=== PATIENT | female | born 1970 | race Caucasian/White ===

== ENCOUNTER → 2018-03-24 | Outpatient (CLI) | payer BC ==
--- NOTE | 2018-03-25 14:03 | MM ---
Reason for exam: screening (asymptomatic). Last mammogram was performed 1 year and 7 months ago. History: Family history of breast cancer in maternal grandmother at age 70. Physical Findings: A clinical breast exam by your physician is recommended on an annual basis and results should be correlated with mammographic findings. MG Screening Mammo w CAD Bilateral CC and MLO view(s) were taken. Prior study comparison: August 25, 2016, bilateral MG screening mammo w CAD. June 03, 2015, bilateral MG screening mammo w CAD. There are scattered fibroglandular densities. There is no discrete abnormality. No significant changes when compared with prior studies. ASSESSMENT: Negative, BI-RAD 1 RECOMMENDATION: Routine screening mammogram of both breasts in 1 year.
== END | disposition home or self-care (01) ==
LOC: RADMAMWWP 08:06
PROVIDERS: ATTEND Obstetrics & Gynecology
DX: Z12.31 Encounter for screening mammogram for malignant neoplasm of breast (principal)
CPT/HCPCS: 77067

== ENCOUNTER → 2019-02-13 | Outpatient (CLI) | payer BC ==
--- NOTE | 2019-02-13 08:15 | US ---
EXAMINATION TYPE: US kidneys/renal and bladder DATE OF EXAM: 02/13/2019 COMPARISON: None CLINICAL HISTORY: 48-year-old female N18.3 CKD Stage 3. TECHNIQUE: Multiple sonographic images of the kidneys and bladder are obtained. FINDINGS: EXAM MEASUREMENTS: Right Kidney: 9.7 x 5.2 x 4.4 cm Left Kidney: 12.6 x 4.6 x 4.3 cm Post Void Residual Volume: 2.7 mL Right Kidney: prominent Column of Talha noted from periphery to hilum Left Kidney: possible malrotation of lower pole; left kidney is partially obscured by overlying bowel gas No definite hydronephrosis on either side. Bilateral renal cortical thinning suggested. Bladder: Under distention limits evaluation Bilateral Jets seen: yes Normal Post Void Residual: yes IMPRESSION: 1. No evident hydronephrosis. Renal cortical thinning suggests underlying chronic medical renal disea se. 2. The lower portion of the left kidney is obscured and is not assessed adequately. 3. Underdistention of the bladder limits its evaluation.
== END ==
LOC: RADUSWWP 06:56
PROVIDERS: ATTEND Internal Medicine Nephrology
DX: N18.3 Chronic kidney disease, stage 3 (moderate) (principal)
CPT/HCPCS: 76770

== ENCOUNTER 2019-06-19 13:37 | Inpatient (IN) | payer BC ==
--- NOTE | 2019-06-19 13:10 | CT ---
EXAMINATION TYPE: CTA chest DATE OF EXAM: 06/19/2019 COMPARISON: None available at the time of this dictation HISTORY: 48-year-old female known right leg DVT, shortness of breath TECHNIQUE: Contiguous axial scanning of the chest after the administration of 76 mL of Isovue 370. C oronal/sagittal MIP reconstructions performed. CT DLP: 539.8mGycm. Automatic exposure control utilized for a dose reduction. FINDINGS: Heart upper limits of normal in size without pericardial effusion. Ectatic aortic root at 3.5 cm. Conventional arch vessel branching anatomy. Satisfactory opacification of the pulmonary arterial system but with mild respiratory motion artifact s is minimal linear internal filling defect at the branch point of the distal aspect of the right low er lobar pulmonary artery, reference axial image 69 and 70. No flattening of the interventricular sep rosamaria or reflux of contrast into the hepatic veins. There is scattered 5 mm and smaller nodularity particularly at the left base where some patchy ground glass is also present. Band of atelectasis at the left midlung. No pleural effusion. Tiny hiatal hernia. Spleen enlarged at 16.9 cm. Bones: Endplate spondylosis mid to lower thoracic spine. IMPRESSION: 1. Some respiratory motion artifacts. There is a solitary linear thromboembolus at the distal aspect of the right lower lobar pulmonary artery. Minimal overall burden without evidence for right heart st rain. 2. Patchy ground glass and nodularity at the left base. Correlate for infectious or aspiration pneumo nitis. Three-month follow-up CT chest recommended to ensure clearance. 3. Splenomegaly (16.[address]). Dr. Franklin's office will be notified of the critical results by phone immediately following the dict ation.
[2019-06-19] MEDS ORDERED: HEPARIN SODIUM,PORCINE 10,000 UNIT/ML 1 ML VIAL IV ONE (14:29)
[2019-06-19] MEDS ORDERED: HEPARIN SODIUM,PORCINE 5,000 UNIT/ML 1 ML VIAL IV PRN (14:29)
--- NOTE | 2019-06-19 14:38 | US ---
EXAMINATION TYPE: US venous doppler duplex LE RT DATE OF EXAM: 06/19/2019 10:22 AM COMPARISON: NONE CLINICAL HISTORY: 48-year-old female R22.41 Swelling of lower Rt leg. SIDE PERFORMED: Right TECHNIQUE: The lower extremity deep venous system is examined utilizing real time linear array sonog roderick with graded compression, doppler sonography and color-flow sonography. FINDINGS: VESSELS IMAGED: External Iliac Vein (EIV) Common Femoral Vein Deep Femoral Vein Greater Saphenous Vein * Femoral Vein Popliteal Vein Small Saphenous Vein * Proximal Calf Veins (* superficial vessels) Right Leg: Internal echoes with partial compression noticed from lower popiteal up through upper fem oral vein, including deep femoral vein, thready to no flow seen with indeterminate age of thrombus. V aricose vein at redness on calf also had no flow and was not compressible. *Impression given to Angelica HERNANDEZ at Rigoberto's office, patient being sent for CT. IMPRESSION: 1. Extensive, incompletely occlusive DVT extending from the upper femoral vein into the lower poplite al vein. Thrombus also involves the deep femoral vein. 2. Additional varicose vein thrombophlebitis at the site of patient's calf redness.
--- NOTE | 2019-06-19 14:40 | ED ---
General Adult HPI - General Chief complaint: Recheck/Abnormal Lab/Rx Stated complaint: Blood Clot in Lung Time Seen by Provider: 06/19/19 14:04 Source: patient, RN notes reviewed Mode of arrival: wheelchair Limitations: no limitations - History of Present Illness Initial comments: This a 48-year-old female presents emergency Department with chief complaint of abnormal ultrasound and CT. Patient states that she's been having right lower leg pain and swelling. Patient states she's noticed some redness was seen by PCP in which she had ultrasound was positive for DVT. Patient had a CAT scan of her chest which was positive for PE. Patient does admit that she had a prior DVT a few years ago and was initially on Xarelto though she had bleeding issues and was placed on Eliquis. Patient does not take any current blood thinners. Patient denies any current chest pain or shortness breath are the usual and states that she has underlying Asthma which usually causes her shortness breath. She reports no fevers or chills. Patient does complain right leg pain. Patient states she does not have any known clotting disorders denies any family history of clotting disorders - Related Data Home Medications Medication Instructions Recorded Confirmed Albuterol Sulfate [Ventolin HFA] 1 - 2 puff INHALATION RT-Q6H PRN 01/06/15 06/19/19 Mometasone/Formoterol [Dulera 200 2 puff INHALATION RT-DAILY 01/06/15 06/19/19 Mcg/5 Mcg Inhaler] Montelukast [Singulair] 10 mg PO HS 01/06/15 06/19/19 Calcium/Magnesium/Zinc 1 tab PO TID 06/19/19 06/19/19 [Tluerit-Wsjpkwovk-Kaey Tablet] Cholecalciferol [Vitamin D3 (25 5,000 unit PO DAILY 06/19/19 06/19/19 Mcg = 1000 Iu)] Hydrochlorothiazide [Hydrodiuril] 25 mg PO DAILY 06/19/19 06/19/19 Losartan Potassium [Cozaar] 12.5 mg PO DAILY 06/19/19 06/19/19 Pilocarpine [Salagen] 5 mg PO DAILY 06/19/19 06/19/19 Propranolol HCl [Propranolol HCl 60 mg PO DAILY 06/19/19 06/19/19 ER] Ursodiol 300 mg PO TID 06/19/19 06/19/19 amLODIPine [Norvasc] 5 mg PO DAILY 06/19/19 06/19/19 Allergies Allergy/AdvReac Type Severity Reaction Status Date / Time cephalexin monohydrate Allergy Rash/Hives Verified 06/19/19 14:40 [From Keflex] Penicillins Allergy Unknown Verified 06/19/19 14:40 Review of Systems ROS Statement: Those systems with pertinent positive or pertinent negative responses have been documented in the HPI. ROS Other: All systems not noted in ROS Statement are negative. Past Medical History Past Medical History: Deep Vein Thrombosis (DVT) Additional Past Medical History / Comment(s): diverticulitis. ELEVATED LFT'S. History of Any Multi-Drug Resistant Organisms: None Reported Past Surgical History: Cholecystectomy, Tonsillectomy Additional Past Surgical History / Comment(s): LIVER BIOPSY. Past Anesthesia/Blood Transfusion Reactions: No Reported Reaction Past Psychological History: No Psychological Hx Reported Smoking Status: Former smoker Past Alcohol Use History: None Reported Past Drug Use History: None Reported - Past Family History Mother Family Medical History: Diabetes Mellitus General Exam Limitations: no limitations General appearance: alert, in no apparent distress Head exam: Present: atraumatic, normocephalic, normal inspection Neck exam: Present: normal inspection, full ROM. Absent: tenderness, meningismus, lymphadenopathy Respiratory exam: Present: normal lung sounds bilaterally. Absent: respiratory distress, wheezes, rales, rhonchi, stridor Cardiovascular Exam: Present: regular rate, normal rhythm, normal heart sounds. Absent: systolic murmur, diastolic murmur, rubs, gallop, clicks Extremities exam: Present: other (Right calf there is mild erythema, swelling, tenderness with palpation, pedal pulses equal bilaterally) Back exam: Absent: CVA tenderness (R), CVA tenderness (L) Neurological exam: Present: alert, oriented X3, CN II-XII intact Skin exam: Present: warm, dry, intact, normal color. Absent: rash Course Vital Signs 06/19/19 13:57 Temperature 98.4 F Pulse Rate 78 Respiratory 20 Rate Blood Pressure 158/91 O2 Sat by Pulse 99 Oximetry EKG Findings - EKG Comments: EKG Findings:: EKG performed at 14:28 normal sinus rhythm prolonged QT rate of 76 RI interval 164 QRS 102 QT/QTC 4:30/483 Medical Decision Making - Lab Data Result diagrams: 06/19/19 14:44 06/19/19 14:44 Lab Results 06/19/19 06/19/19 06/19/19 Range/Units 14:44 14:44 14:44 WBC 6.8 (3.8-10.6) k/uL RBC 4.14 (3.80-5.40) m/uL Hgb 12.1 (11.4-16.0) gm/dL Hct 35.8 (34.0-46.0) % MCV 86.3 (80.0-100.0) fL MCH 29.1 (25.0-35.0) pg MCHC 33.7 (31.0-37.0) g/dL RDW 14.6 (11.5-15.5) % Plt Count 127 L (150-450) k/uL Neutrophils % 73 % Lymphocytes % 11 % Monocytes % 5 % Eosinophils % 8 % Basophils % 0 % Neutrophils # 4.9 (1.3-7.7) k/uL Lymphocytes # 0.8 L (1.0-4.8) k/uL Monocytes # 0.3 (0-1.0) k/uL Eosinophils # 0.6 (0-0.7) k/uL Basophils # 0.0 (0-0.2) k/uL PT 10.4 (9.0-12.0) sec INR 1.0 (<1.2) APTT 41.9 H (22.0-30.0) sec Sodium 141 (137-145) mmol/L Potassium 3.3 L (3.5-5.1) mmol/L Chloride 101 (98-107) mmol/L Carbon Dioxide 30 (22-30) mmol/L Anion Gap 10 mmol/L BUN 26 H (7-17) mg/dL Creatinine 1.38 H (0.52-1.04) mg/dL Est GFR (CKD-EPI)AfAm 53 (>60 ml/min/1.73 sqM) Est GFR (CKD-EPI)NonAf 46 (>60 ml/min/1.73 sqM) Glucose 108 H (74-99) mg/dL Calcium 9.6 (8.4-10.2) mg/dL Total Bilirubin 0.7 (0.2-1.3) mg/dL AST 44 H (14-36) U/L ALT 56 H (9-52) U/L Alkaline Phosphatase 143 H (38-126) U/L Troponin I (0.000-0.034) ng/mL NT-Pro-B Natriuret Pep pg/mL Total Protein 7.5 (6.3-8.2) g/dL Albumin 4.4 (3.5-5.0) g/dL 06/19/19 06/19/19 Range/Units 14:44 14:44 WBC (3.8-10.6) k/uL RBC (3.80-5.40) m/uL Hgb (11.4-16.0) gm/dL Hct (34.0-46.0) % MCV (80.0-100.0) fL MCH (25.0-35.0) pg MCHC (31.0-37.0) g/dL RDW (11.5-15.5) % Plt Count (150-450) k/uL Neutrophils % % Lymphocytes % % Monocytes % % Eosinophils % % Basophils % % Neutrophils # (1.3-7.7) k/uL Lymphocytes # (1.0-4.8) k/uL Monocytes # (0-1.0) k/uL Eosinophils # (0-0.7) k/uL Basophils # (0-0.2) k/uL PT (9.0-12.0) sec INR (<1.2) APTT (22.0-30.0) sec Sodium (137-145) mmol/L Potassium (3.5-5.1) mmol/L Chloride (98-107) mmol/L Carbon Dioxide (22-30) mmol/L Anion Gap mmol/L BUN (7-17) mg/dL Creatinine (0.52-1.04) mg/dL Est GFR (CKD-EPI)AfAm (>60 ml/min/1.73 sqM) Est GFR (CKD-EPI)NonAf (>60 ml/min/1.73 sqM) Glucose (74-99) mg/dL Calcium (8.4-10.2) mg/dL Total Bilirubin (0.2-1.3) mg/dL AST (14-36) U/L ALT (9-52) U/L Alkaline Phosphatase (38-126) U/L Troponin I <0.012 (0.000-0.034) ng/mL NT-Pro-B Natriuret Pep 56 pg/mL Total Protein (6.3-8.2) g/dL Albumin (3.5-5.0) g/dL - Radiology Data CT of chest and she'll there is a embolus at the distal aspect of the right lower pulmonary artery minimal overall burden without evidence of right heart strain. Ultrasound venous Doppler right lower extremity extensive incomplete occlusive DVT extending from upper a small vein into the lower popliteal vein Critical Care Time Critical Care Time: Yes Total Critical Care Time: 35 Critical Care Time: Total 35 minutes of critical care time were used to initially evaluated patient, reviewed past medical history, review vitals, reviewed outpatient studies. Labs including CBC, CMP, troponin, BnP were ordered EKG. Patient started on heparin high-dose on initial evaluation. Patient case discussed with admitting physician patient will be admitted for further evaluation secondary to second DVT along with PE Disposition Clinical Impression: Pulmonary embolism, Right leg DVT Disposition: ADMITTED IP TO THIS HOSP Condition: Fair Referrals: Rafiq Franklin MD [Primary Care Provider] - 1-2 days
[2019-06-19 14:59] LABS: Basophils % (A) 0 %; Eosinophils # (A) 0.6 k/uL (0-0.7); Eosinophils % (A) 8 %; HCT 35.8 % (34.0-46.0); HGB 12.1 gm/dL (11.4-16.0); Lymphocytes # (A) 0.8 k/uL (1.0-4.8); Lymphocytes % (A) 11 %; MCH 29.1 pg (25.0-35.0); MCHC 33.7 g/dL (31.0-37.0); MCV 86.3 fL (80.0-100.0); Mean Platelet Volume 9.4; Monocytes # (A) 0.3 k/uL (0-1.0); Monocytes % (A) 5 %; Neutrophils # (A) 4.9 k/uL (1.3-7.7); Neutrophils % (A) 73 %; Platelet Count 127 k/uL (150-450); RBC 4.14 m/uL (3.80-5.40); RDW 14.6 % (11.5-15.5); WBC 6.8 k/uL (3.8-10.6)
[2019-06-19 15:08] LABS: Albumin 4.4 g/dL (3.5-5.0); Calcium 9.6 mg/dL (8.4-10.2); Partial Thromboplastin Time 41.9 sec (22.0-30.0); Potassium 3.3 mmol/L (3.5-5.1); Prothrombin Time 10.4 sec (9.0-12.0); Total Bilirubin 0.7 mg/dL (0.2-1.3); Total Protein 7.5 g/dL (6.3-8.2)
[2019-06-19] MEDS: HEPARIN SOD,PORK IN 0.45% NACL 25,000 UNIT in 0.45% NACL 1 250ML.BAG IV SCH (15:55)
[2019-06-19] MEDS ORDERED: ACETAMINOPHEN TAB 325 MG TAB PO PRN (16:10)
[2019-06-19] MEDS ORDERED: HYDROcodone/APAP 5-325MG 1 EACH TAB PO PRN (16:10)
[2019-06-19] MEDS ORDERED: NALOXONE 0.4 MG/ML 1 ML VIAL IV PRN (16:10)
[2019-06-19] MEDS ORDERED: IPRATROPIUM-ALBUTEROL 3 ML NEB INHALATION PRN (19:48)
[2019-06-19 21:07] VITALS: BMI 43.2
[2019-06-19] MEDS: URSODIOL 300 MG CAP PO SCH (21:10)
[2019-06-19] MEDS: MONTELUKAST 10 MG TAB PO SCH (21:10)
--- NOTE | 2019-06-19 22:53 | P.HPIM ---
History of Present Illness H&P Date: 06/19/19 Chief Complaint: Acute venous thromboembolism 48-year-old female with history of primary biliary cirrhosis, asthma, history of venous thromboembolism. Patient comes in today with an outpatient diagnosis of acute DVT and PE. Patient has been complaining of some cramps and pain in her right leg for around a week now denies any trauma recent travel any recent hospitalization or surgery. Patient denies any active diagnoses of cancer. She was checked by her PCP who suspected a DVT performed and venous ultrasound of the lower extremity and found DVT. Was sent in here for further management CTA of the chest showed acute pulmonary embolism and groundglass appearance of the left lung base. She denies any coughing shortness of breath or chest pain denies any fevers or chills denies any nausea vomiting or abdominal pain she does report leg cramps and pain along with swelling and redness over her right leg. Patient does report that she had a provoked event of venous thromboembolic some back in 2014 where she was treated with Eliquis for 6 months In the ED she was also found to have low potassium otherwise her EKG showed prolonged QT interval but asymptomatic. CK D stage III at baseline. Review of Systems Pertinent positives as noted in HPI. All other systems were reviewed and are negative Past Medical History Past Medical History: Asthma, Deep Vein Thrombosis (DVT), Hypertension Additional Past Medical History / Comment(s): diverticulitis. ELEVATED LFT'S. p rimary biliary cirrhosis, Raynaud's History of Any Multi-Drug Resistant Organisms: None Reported Past Surgical History: Cholecystectomy, Tonsillectomy Additional Past Surgical History / Comment(s): LIVER BIOPSY. Past Anesthesia/Blood Transfusion Reactions: No Reported Reaction Past Psychological History: No Psychological Hx Reported Smoking Status: Former smoker Past Alcohol Use History: None Reported Past Drug Use History: None Reported - Past Family History Father History Unknown: Yes Mother Family Medical History: Diabetes Mellitus Medications and Allergies Home Medications Medication Instructions Recorded Confirmed Type Albuterol Sulfate [Ventolin HFA] 1 - 2 puff INHALATION RT-Q6H PRN 01/06/15 06/19/19 History Mometasone/Formoterol [Dulera 200 2 puff INHALATION RT-DAILY 01/06/15 06/19/19 History Mcg/5 Mcg Inhaler] Montelukast [Singulair] 10 mg PO HS 01/06/15 06/19/19 History Calcium/Magnesium/Zinc 1 tab PO TID 06/19/19 06/19/19 History [Rzaukan-Wcavqrmrn-Sqsv Tablet] Cholecalciferol [Vitamin D3 (25 5,000 unit PO DAILY 06/19/19 06/19/19 History Mcg = 1000 Iu)] Hydrochlorothiazide [Hydrodiuril] 25 mg PO DAILY 06/19/19 06/19/19 History Losartan Potassium [Cozaar] 12.5 mg PO DAILY 06/19/19 06/19/19 History Pilocarpine [Salagen] 5 mg PO DAILY 06/19/19 06/19/19 History Propranolol HCl [Propranolol HCl 60 mg PO DAILY 06/19/19 06/19/19 History ER] Ursodiol 300 mg PO TID 06/19/19 06/19/19 History amLODIPine [Norvasc] 5 mg PO DAILY 06/19/19 06/19/19 History Allergies Allergy/AdvReac Type Severity Reaction Status Date / Time cephalexin monohydrate Allergy Rash/Hives Verified 06/19/19 14:40 [From [employer]] Penicillins Allergy Unknown Verified 06/19/19 14:40 Physical Exam Vitals: Vital Signs Temp Pulse Pulse Resp BP BP Pulse Ox 06/19/19 20:00 98.4 F 85 16 134/82 95 06/19/19 18:30 77 130/94 98 06/19/19 18:00 150/87 98 06/19/19 17:30 75 18 155/90 97 06/19/19 16:30 71 17 131/86 99 06/19/19 16:00 68 32 H 138/92 100 06/19/19 13:57 98.4 F 78 20 158/91 99 Intake and Output 06/19/19 06/19/19 06/19/19 06:59 14:59 22:59 Other: Voiding Method Toilet Weight 107.229 kg Constitutional: No acute distress, conversant, pleasant, obese Eyes: Anicteric sclerae, moist conjunctiva, no lid-lag Pupils equal round reactive to light ENMT: NC/AT Oropharynx clear, no erythema, or exudates Neck: Supple, FROM, no masses, or JVD No carotid bruits No thyromegaly Lungs: Clear to auscultation Clear to percussion Normal respiratory effort, no accessory muscle use Cardiovascular: Heart regular in rate and rhythm, No murmurs, gallops, or rubs No peripheral edema Abdominal: Soft Nontender, no guarding, rebound or rigidity Abdomen moving with respiration Normoactive bowel sounds No hepatomegaly, No splenomegaly No palpable mass No abdominal wall hernia noted Skin: Area of redness and swelling over the medial aspect of the upper right leg tender to palpation warmth to the touch no drainage or open wounds Otherwise Normal temperature, tone, texture, turgor No induration No subcutaneous nodules No rash, lesions No ulcers Extremities: As mentioned above under skin exam there is area of Area of redness and swelling over the medial aspect of the upper right leg tender to palpation warmth to the touch no drainage or open wounds No digital cyanosis No clubbing Pedal pulses intact and symmetrical Radial pulses intact and symmetrical No calf tenderness Psychiatric: Alert and oriented to person, place and time Appropriate affect fair judgment Neuro Muscles Strength 5/5 in all 4 extremities Sensation to light touch grossly present throughout Cranial nerves II-XII grossly intact No focal sensory deficits Lymphatics: no palpable cervical or supraclavicular , or inguinal lymph nodes Results CBC & Chem 7: 06/19/19 14:44 06/19/19 14:44 Labs: Abnormal Lab Results - Last 24 Hours (Table) 06/19/19 06/19/19 06/19/19 Range/Units 14:44 14:44 14:44 Plt Count 127 L (150-450) k/uL Lymphocytes # 0.8 L (1.0-4.8) k/uL APTT 41.9 H (22.0-30.0) sec Potassium 3.3 L (3.5-5.1) mmol/L BUN 26 H (7-17) mg/dL Creatinine 1.38 H (0.52-1.04) mg/dL Glucose 108 H (74-99) mg/dL AST 44 H (14-36) U/L ALT 56 H (9-52) U/L Alkaline Phosphatase 143 H (38-126) U/L 06/19/19 Range/Units 21:03 Plt Count (150-450) k/uL Lymphocytes # (1.0-4.8) k/uL APTT >200.0 H* (22.0-30.0) sec Potassium (3.5-5.1) mmol/L BUN (7-17) mg/dL Creatinine (0.52-1.04) mg/dL Glucose (74-99) mg/dL AST (14-36) U/L ALT (9-52) U/L Alkaline Phosphatase (38-126) U/L Thrombosis Risk Factor Assmnt - Choose All That Apply Each Factor Represents 1 point: Age 41-60 years, Obesity (BMI >25) Thrombosis Risk Factor Assessment Total Risk Factor Score: 2 Thrombosis Risk Factor Assessment Level: Low Risk Assessment and Plan Assessment: 48-year-old female with history of primary biliary cirrhosis,provoked DVT 2014. 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 and pulmonary embolism History of provoked venous thromboembolic some back in 2014 Patient started on heparin drip We'll obtain authorization the morning for Eliquis Check ambulatory oxygen saturation in the morning Outpatient follow-up with hematology for further workup Hypokalemia Replace by mouth Follow-up levels Prolonged QT interval on EKG asymptomatic Replace electrolytes bread distributor Chronic conditions History of primary biliary cirrhosis Asthma Hypertension Continue home medications CK D stage III currently stable DVT prophylaxis currently on heparin drip for recurrent venous thromboembolic some Preformed a thorough record review from recent hospitalization, hospitalized back in 2014 for cardiac workup after which she claims to remain active for large chunks of time of the day and up with having what is thought to be provoked venous thromboembolism at that time was treated with Eliquis for 6 months and then stopped it on September 2015 Surrogate decision-maker: CODE STATUS: Full code Discussed with: Patient, ER, RN Anticipated discharge: 48-[address]: Home A total of 60 minutes was spent on the care of this complex patient more than 50% of the time was spent in counseling and care coordination.
[2019-06-19] MEDS ORDERED: POTASSIUM CHLORIDE ER 20 MEQ TAB.ER PO STA (22:55)
[2019-06-20 03:42] LABS: Basophils % (A) 1 %; Eosinophils # (A) 0.5 k/uL (0-0.7); Eosinophils % (A) 7 %; HCT 34.1 % (34.0-46.0); HGB 10.9 gm/dL (11.4-16.0); Lymphocytes # (A) 0.9 k/uL (1.0-4.8); Lymphocytes % (A) 13 %; MCHC 31.9 g/dL (31.0-37.0); MCV 87.8 fL (80.0-100.0); Mean Platelet Volume 7.6; Monocytes # (A) 0.3 k/uL (0-1.0); Monocytes % (A) 5 %; Neutrophils % (A) 71 %; Platelet Count 148 k/uL (150-450); RBC 3.88 m/uL (3.80-5.40); RDW 14.8 % (11.5-15.5)
[2019-06-20 04:06] LABS: Albumin 3.8 g/dL (3.5-5.0); Potassium 3.2 mmol/L (3.5-5.1); Total Bilirubin 0.7 mg/dL (0.2-1.3); Total Protein 6.6 g/dL (6.3-8.2)
[2019-06-20 04:07] LABS: Magnesium 1.9 mg/dL (1.6-2.3)
[2019-06-20] MEDS: HEPARIN SOD,PORK IN 0.45% NACL 25,000 UNIT in 0.45% NACL 1 250ML.BAG IV SCH ×2 (04:19→17:22)
[2019-06-20] MEDS ORDERED: POTASSIUM CHLORIDE ER 20 MEQ TAB.ER PO STA (06:56)
[2019-06-20] MEDS: PILOCARPINE 5 MG TAB PO SCH (08:11)
[2019-06-20] MEDS: LOSARTAN 25 MG TAB PO SCH (08:13)
[2019-06-20] MEDS: amLODIPine 5 MG TAB PO SCH (08:13)
[2019-06-20] MEDS: HYDROCHLOROTHIAZIDE 25 MG TAB PO SCH (08:13)
[2019-06-20] MEDS: URSODIOL 300 MG CAP PO SCH ×3 (08:14→22:06)
[2019-06-20] MEDS: PROPRANOLOL LA 60 MG CAP.SA.24H PO SCH (08:15)
[2019-06-20] MEDS: SYMBICORT 160-4.5 MCG INHALER INHALATION SCH (08:44)
--- NOTE | 2019-06-20 09:57 | P.PN ---
Subjective Progress Note Date: 06/20/19 Principal diagnosis: Patient feels okay today no chest pain no shortness of breath Constitutional: No acute distress, Eyes: Anicteric sclerae, moist conjunctiva, no lid-lag PERRLA ENMT: NC/AT Oropharynx clear, no erythema, exudates Neck: Supple, FROM, no masses, or JVD No carotid bruits No thyromegaly Lungs: Clear to auscultation Clear to percussion Normal respiratory effort, no accessory muscle use Cardiovascular: Heart regular in rate and rhythm, No murmurs, gallops, or rubs No peripheral edema Abdominal: Soft Nontender, no guarding, rebound or rigidity Abdomen moving with respiration Normoactive bowel sounds No hepatomegaly, No splenomegaly No palpable mass No abdominal wall hernia noted Skin: Normal temperature, tone, texture, turgor No induration No subcutaneous nodules No rash, lesions No ulcers Extremities: No digital cyanosis No clubbing Pedal pulses intact and symmetrical Radial pulses intact and symmetrical Normal gait and station No calf tenderness Psychiatric:Alert and oriented to person, place and time Appropriate affect Intact judgement Neuro: No focal weakness 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 and pulmonary embolism History of provoked venous thromboembolic some back in 2014 Patient started on heparin drip We'll obtain authorization the morning for Eliquis Mild thrombocytopenia no evidence of bleeding we will consult hematology Hypokalemia Replace by mouth Follow-up levels Prolonged QT interval on EKG asymptomatic 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 conditions History of primary biliary cirrhosis Asthma Hypertension Continue home medications CK D stage III currently stable Objective - Vital Signs Vital signs: Vital Signs Temp 98 F 06/20/19 08:00 Pulse 100 06/20/19 08:00 Resp 18 06/20/19 08:00 BP 149/74 06/20/19 08:00 Pulse Ox 96 06/20/19 08:00 Intake & Output 06/19/19 06/20/19 06/20/19 18:59 06:59 18:59 Intake Total 223.355 120 Balance 223.355 120 Weight 107.229 kg 118.1 kg Intake: Intake, IV Titration 223.355 Amount Heparin Sod,Pork in 0.45% 223.355 NaCl 25,000 unit In 0.45 % NaCl 1 250ml.bag @ 18 UNITS/KG/HR 19.301 mls/hr IV .[id number] [facility] Rx#: [id number] Oral 120 Other: Voiding Method Toilet # Voids 1 1 - Labs CBC & Chem 7: 06/20/19 03:20 06/20/19 03:20 Labs: Abnormal Lab Results - Last 24 Hours (Table) 06/19/19 06/19/19 06/19/19 Range/Units 14:44 14:44 14:44 Hgb (11.4-16.0) gm/dL Plt Count 127 L (150-450) k/uL Lymphocytes # 0.8 L (1.0-4.8) k/uL APTT 41.9 H (22.0-30.0) sec Potassium 3.3 L (3.5-5.1) mmol/L BUN 26 H (7-17) mg/dL Creatinine 1.38 H (0.52-1.04) mg/dL Glucose 108 H (74-99) mg/dL AST 44 H (14-36) U/L ALT 56 H (9-52) U/L Alkaline Phosphatase 143 H (38-126) U/L 06/19/19 06/20/19 06/20/19 Range/Units 21:03 03:20 03:20 Hgb 10.9 L (11.4-16.0) gm/dL Plt Count 148 L (150-450) k/uL Lymphocytes # 0.9 L (1.0-4.8) k/uL APTT >200.0 H* 81.2 H (22.0-30.0) sec Potassium (3.5-5.1) mmol/L BUN (7-17) mg/dL Creatinine (0.52-1.04) mg/dL Glucose (74-99) mg/dL AST (14-36) U/L ALT (9-52) U/L Alkaline Phosphatase (38-126) U/L 06/20/19 Range/Units 03:20 Hgb (11.4-16.0) gm/dL Plt Count (150-450) k/uL Lymphocytes # (1.0-4.8) k/uL APTT (22.0-30.0) sec Potassium 3.2 L (3.5-5.1) mmol/L BUN 25 H (7-17) mg/dL Creatinine 1.26 H (0.52-1.04) mg/dL Glucose 108 H (74-99) mg/dL AST 38 H (14-36) U/L ALT 54 H (9-52) U/L Alkaline Phosphatase (38-126) U/L
--- NOTE | 2019-06-20 16:15 | P.CONS ---
History of Present Illness - Reason for Consult Consult date: 06/20/19 RLE DVT/RLL PE, Hx of blood clots Requesting physician: Alyssa Cannon Bleibel - Chief Complaint chest discomfort - History of Present Illness Mrs. Lambert is a very pleasant 48-year-old female with a history of varicose veins, she was also seen by Dr. Castellanos several years ago for varicose veins and peripheral vascular disease. Back in December 2014 patient was a dmitted for severe hypertensive urgency/crisis. She was hospitalized for several days. In January 2015 she was diagnosed right lower extremity DVT, VQ at that time was "suspicious for right lower lobe pulmonary embolism". Patient was placed on Xarelto, unfortunately she had HOGSHEAD DUMPER hemorrhage, this was managed and she was placed on eliquis for 6 months of therapy without further complications. Patient presented to the hospital with complaints of persistent, progressive right lower extremity swelling and discomfort, she also had some complaints of chest discomfort, CT of the chest revealing a right lower lobe pulmonary embolism, Doppler of the right lower extremity revealed a popliteal to femoral clot. She is currently on heparin, her leg continues to be tender, swelling little less intense, she denies any bleeding, patient states she is due for mammogram, denies a personal history of malignancy, denies hematological disorders in her family. She has a history of uterine fibroids with large ovarian cyst on the left for which she has had surgery. Denies any recent trips, hospitalizations, surgeries, she is not on any hormones, no injuries, she has been working and her activity levels have been good, she does have asthma with steroid inhalers, denies oral steroid use chronically, she does have stage III chronic kidney disease as well as hypertension. Review of Systems 14 point review of systems is negative except as stated in HPI Past Medical History Past Medical History: Asthma, Deep Vein Thrombosis (DVT), Hypertension, Pulmonary Embolus (PE) Additional Past Medical History / Comment(s): diverticulitis. ELEVATED LFT'S. primary biliary cirrhosis, Raynaud's History of Any Multi-Drug Resistant Organisms: None Reported Past Surgical History: Cholecystectomy, Tonsillectomy Additional Past Surgical History / Comment(s): LIVER BIOPSY. Past Anesthesia/Blood Transfusion Reactions: No Reported Reaction Past Psychological History: No Psychological Hx Reported Smoking Status: Former smoker Past Alcohol Use History: None Reported Past Drug Use History: None Reported - Past Family History Father History Unknown: Yes Mother Family Medical History: Diabetes Mellitus Additional Family Medical History / Comment(s): Grandmother with breast cancer in her 80s, no hematological disorders Medications and Allergies Home Medications Medication Instructions Recorded Confirmed Type Albuterol Sulfate [Ventolin HFA] 1 - 2 puff INHALATION RT-Q6H PRN 01/06/15 06/19/19 History Mometasone/Formoterol [Dulera 200 2 puff INHALATION RT-DAILY 01/06/15 06/19/19 History Mcg/5 Mcg Inhaler] Montelukast [Singulair] 10 mg PO HS 01/06/15 06/19/19 History Calcium/Magnesium/Zinc 1 tab PO TID 06/19/19 06/19/19 History [Rnkuuib-Puunjrujp-Kiju Tablet] Cholecalciferol [Vitamin D3 (25 5,000 unit PO DAILY 06/19/19 06/19/19 History Mcg = 1000 Iu)] Hydrochlorothiazide [Hydrodiuril] 25 mg PO DAILY 06/19/19 06/19/19 History Losartan Potassium [Cozaar] 12.5 mg PO DAILY 06/19/19 06/19/19 History Pilocarpine [Salagen] 5 mg PO DAILY 06/19/19 06/19/19 History Propranolol HCl [Propranolol HCl 60 mg PO DAILY 06/19/19 06/19/19 History ER] Ursodiol 300 mg PO TID 06/19/19 06/19/19 History amLODIPine [Norvasc] 5 mg PO DAILY 06/19/19 06/19/19 History Allergies Allergy/AdvReac Type Severity Reaction Status Date / Time cephalexin monohydrate Allergy Rash/Hives Verified 06/19/19 14:40 [From Keflex] Penicillins Allergy Unknown Verified 06/19/19 14:40 Physical Exam Vitals: Vital Signs Temp Pulse Pulse Pulse Resp BP BP 06/20/19 11:23 98 F 81 18 122/83 06/20/19 08:00 98 F 100 18 149/74 06/20/19 03:50 98.2 F 82 15 136/82 06/20/19 00:18 98.3 F 77 16 118/80 06/19/19 22:54 90 06/19/19 20:00 98.4 F 85 16 134/82 06/19/19 18:30 77 130/94 06/19/19 18:00 150/87 06/19/19 17:30 75 18 155/90 06/19/19 16:30 71 17 131/86 06/19/19 16:00 68 32 H 138/92 Pulse Ox Pulse Ox 06/20/19 11:23 96 06/20/19 08:00 96 06/20/19 03:50 98 06/20/19 00:18 96 06/19/19 22:54 96 06/19/19 20:00 95 06/19/19 18:30 98 06/19/19 18:00 98 06/19/19 17:30 97 06/19/19 16:30 99 06/19/19 16:00 100 Intake and Output 06/20/19 06/20/19 06/20/19 06:59 14:59 22:59 Intake Total 223.355 600 Balance 223.355 600 Intake: Intake, IV Titration 223.355 Amount Heparin Sod,Pork in 0.45% 223.355 NaCl 25,000 unit In 0.45 % NaCl 1 250ml.bag @ 18 UNITS/KG/HR 19.301 mls/hr IV .[id number] Rx#: [id number] Oral 600 Other: Voiding Method Toilet # Voids 1 1 Weight 118.1 kg - Constitutional General appearance: cooperative, no acute distress, obese - EENT Eyes: anicteric sclerae, EOMI ENT: hearing grossly normal, normal oropharynx - Neck Neck: no lymphadenopathy - Respiratory Respiratory: right: dullness (Lower lobe), left: CTA - Cardiovascular Right lower extremity medial calf has some moderate redness, warmth, firm to the touch pedal pulses palpable +2 Rhythm: regular Heart sounds: normal: S1, S2 Abnormal Heart Sounds: no systolic murmur, no diastolic murmur, no rub, no S3 Gallop, no S4 Gallop, no click, no other - Gastrointestinal General gastrointestinal: no absent bowel sounds, no decreased bowel sounds, no distended, no hepatomegaly, no hyperactive bowel sounds, normal bowel sounds, no organomegaly, no rigid, no scaphoid, soft, no splenomegaly, no tenderness, no umbilical hernia, no ventral hernia - Integumentary Integumentary: normal - Neurologic Neurologic: CNII-XII intact - Musculoskeletal Musculoskeletal: strength equal bilaterally - Psychiatric Psychiatric: A&O x's 3, appropriate affect, intact judgment & insight Results CBC & Chem 7: 06/20/19 03:20 06/20/19 11:48 Labs: Abnormal Lab Results - Last 24 Hours (Table) 06/19/19 06/20/19 06/20/19 Range/Units 21:03 03:20 03:20 Hgb 10.9 L (11.4-16.0) gm/dL Plt Count 148 L (150-450) k/uL Lymphocytes # 0.9 L (1.0-4.8) k/uL APTT >200.0 H* 81.2 H (22.0-30.0) sec Potassium (3.5-5.1) mmol/L BUN (7-17) mg/dL Creatinine (0.52-1.04) mg/dL Glucose (74-99) mg/dL AST (14-36) U/L ALT (9-52) U/L 06/20/19 06/20/19 Range/Units 03:20 10:23 Hgb (11.4-16.0) gm/dL Plt Count (150-450) k/uL Lymphocytes # (1.0-4.8) k/uL APTT 60.3 H (22.0-30.0) sec Potassium 3.2 L (3.5-5.1) mmol/L BUN 25 H (7-17) mg/dL Creatinine 1.26 H (0.52-1.04) mg/dL Glucose 108 H (74-99) mg/dL AST 38 H (14-36) U/L ALT 54 H (9-52) U/L CT scan - chest: report reviewed Venous US: report reviewed Assessment and Plan (1) Pulmonary embolism Current Visit: Yes Status: Acute Priority: High Code(s): I26.99 - OTHER PULMONARY EMBOLISM WITHOUT ACUTE COR PULMONALE SNOMED Code(s): 82404906 (2) Right leg DVT Current Visit: Yes Status: Acute Priority: High Code(s): I82.401 - ACUTE EMBOLISM AND THOMBOS UNSP DEEP VEINS OF R LOW EXTREM SNOMED Code(s): 805271328 Plan: Case was reviewed with Dr. Melo. From review of the patient's chart, history and physical exam this does appear to be an unprovoked DVT and PE. It is not absolutely certain if this is possibly chronic. Patient does have a history of a right lower extremity DVT in 2015, posthospitalization, VQ scan impression was suspicion for a right lower lobe PE. Patient states she was anticoagulated with Xarelto initially, she had gynecological hemorrhaging, was placed on all across and tolerated this well. Recommendation is loading dose eliquis, continue anticoagulation for at least one year, follow up doppler and CTA before considering discontinuation of therapy. There is also the high probability that pt may have to be on lifelong anticoagulation. She verbalized understanding. Re viewed hypercoaguable work up, prescription has been placed in the chart. Follow-up with Dr. Melo in 4-5 weeks after discharge. Reviewed bleeding precautions
[2019-06-20] MEDS: MONTELUKAST 10 MG TAB PO SCH (22:05)
[2019-06-21 07:43] LABS: HCT 31.8 % (34.0-46.0); HGB 10.4 gm/dL (11.4-16.0); MCHC 32.8 g/dL (31.0-37.0); MCV 88.6 fL (80.0-100.0); Mean Platelet Volume 8.2; Platelet Count 136 k/uL (150-450); RBC 3.59 m/uL (3.80-5.40); RDW 14.8 % (11.5-15.5); WBC 5.9 k/uL (3.8-10.6)
[2019-06-21] MEDS: SYMBICORT 160-4.5 MCG INHALER INHALATION SCH (07:45)
[2019-06-21 08:01] LABS: Albumin 3.6 g/dL (3.5-5.0); Calcium 8.8 mg/dL (8.4-10.2); Potassium 3.6 mmol/L (3.5-5.1); Total Bilirubin 0.6 mg/dL (0.2-1.3); Total Protein 6.3 g/dL (6.3-8.2)
[2019-06-21] MEDS: URSODIOL 300 MG CAP PO SCH ×3 (08:23→20:58)
[2019-06-21] MEDS: HYDROCHLOROTHIAZIDE 25 MG TAB PO SCH (08:23)
[2019-06-21] MEDS: LOSARTAN 25 MG TAB PO SCH ×2 (08:23→09:07)
[2019-06-21] MEDS: PROPRANOLOL LA 60 MG CAP.SA.24H PO SCH ×2 (08:23→09:07)
[2019-06-21] MEDS: PILOCARPINE 5 MG TAB PO SCH ×2 (08:23→08:34)
[2019-06-21] MEDS: amLODIPine 5 MG TAB PO SCH ×2 (08:23→09:07)
[2019-06-21] MEDS: HEPARIN SOD,PORK IN 0.45% NACL 25,000 UNIT in 0.45% NACL 1 250ML.BAG IV SCH ×2 (08:30→20:59)
--- NOTE | 2019-06-21 09:44 | P.PN ---
Progress Note - Text Progress Note Date: 06/21/19 Patient complained of shortness of breath this morning does not appear to be in distress not hypoxic and hemodynamically stable no chest pain no vomiting Constitutional: No acute distress, conversant, pleasant Eyes: Neck: Supple, Lungs: Clear to auscultation Clear to percussion Normal respiratory effort, no accessory muscle use Cardiovascular: Heart regular in rate and rhythm, No murmurs, gallops, or rubs No peripheral edema Abdominal: Soft Nontender, no guarding, rebound or rigidity Skin: Normal temperature, tone, texture, turgor No induration No subcutaneous nodules No rash, lesions No ulcers Extremities: No digital cyanosis No clubbing Pedal pulses intact and symmetrical Radial pulses intact and symmetrical Normal gait and station No calf tenderness Psychiatric:Alert and oriented to person, place and time Appropriate affect Intact judgement Neuro: No obvious weakness 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
--- NOTE | 2019-06-21 15:57 | P.CNPUL ---
History of Present Illness Consult date: 06/21/19 Reason for consult: pulmonary embolism, DVT History of present illness: This is a very pleasant 48-year-old female patient is coming in for pain and cramps in the right lower extremity of one week duration. chest discomfort. The patient has previous history of a right lower extremity DVT back in 2014. At that time the patient was treated with anticoagulation with Xarelto for a total of 6 months. Subsequently the treatment was discontinued as the patient developed vaginal bleeding related to fibroid tumors. Anti-coagulation was stopped and subsequently the patient underwent a hysterectomy. Or this past 3 years the patient was doing well. She came in and further workup during this current hospitalization showed a right lower extremities DVT involving the popliteal and the femoral veins. The patient was started on IV heparin. CT angiogram was also done and it showed a small subsegmental pulmonary embolism in the right lower lobe. The patient is currently on IV heparin to be transitioned to Eliquis. She is doing well per sputum production for which he is followed up in our office for bronchial asthma. She has no hemoptysis. No pleurisy. No chest pain. She suffers from biliary cirrhosis which is a primary. Cirrhosis pH is suffers also from hypertension and chronic stage III kidney disease. No new complaints otherwise for now. Note that the patient did not have any travel history. No recent hospitalization. No recent surgeries. No recent trauma. Review of Systems Constitutional: Denies chills, Denies fever Eyes: denies as per HPI, denies blurred vision, denies bulging eye, denies decreased vision, denies diplopia, denies discharge, denies dry eye, denies irritation, denies itching, denies pain, denies photophobia, denies loss of peripheral vision, denies loss of vision, denies tunnel vision/blind spots Ears: deny: decreased hearing, ear discharge, earache, tinnitus Ears, nose, mouth and throat: Denies headache, Denies sore throat Breasts: absent: as per HPI, change in shape, gynecomastia, masses, nipple discharge, pain, skin changes, swelling Cardiovascular: Reports chest pain, Reports dyspnea on exertion Respiratory: Reports as per HPI Gastrointestinal: Reports as per HPI Genitourinary: Reports as per HPI Musculoskeletal: Reports as per HPI (Pain in the right lower extremity) Musculoskeletal: right: ankle swelling, absent: ankle pain, ankle stiffness Integumentary: Reports as per HPI Neurological: Reports as per HPI Psychiatric: Reports as per HPI Endocrine: Reports as per HPI Hematologic/Lymphatic: Reports as per HPI Allergic/Immunologic: Reports as per HPI Past Medical History Past Medical History: Asthma, Deep Vein Thrombosis (DVT), Hypertension, Pulmonary Embolus (PE) Additional Past Medical History / Comment(s): History of a right lower extremity DVT, history of pulmonary embolism, history of diverticulosis, probably cirrhosis, hypertension, chronic stage III kidney disease, Raynaud's disease, diverticulosis History of Any Multi-Drug Resistant Organisms: None Reported Past Surgical History: Cholecystectomy, Tonsillectomy Additional Past Surgical History / Comment(s): LIVER BIOPSY. Past Anesthesia/Blood Transfusion Reactions: No Reported Reaction Past Psychological History: No Psychological Hx Reported Smoking Status: Former smoker Past Alcohol Use History: None Reported Past Drug Use History: None Reported - Past Family History Father History Unknown: Yes Additional Family Medical History / Comment(s): No family history of thromboembolic disease Mother Family Medical History: Diabetes Mellitus Additional Family Medical History / Comment(s): Grandmother with breast cancer in her 80s, no hematological disorders Medications and Allergies Home Medications Medication Instructions Recorded Confirmed Type Albuterol Sulfate [Ventolin HFA] 1 - 2 puff INHALATION RT-Q6H PRN 01/06/15 06/19/19 History Mometasone/Formoterol [Dulera 200 2 puff INHALATION RT-DAILY 01/06/15 06/19/19 History Mcg/5 Mcg Inhaler] Montelukast [Singulair] 10 mg PO HS 01/06/15 06/19/19 History Calcium/Magnesium/Zinc 1 tab PO TID 06/19/19 06/19/19 History [Ugqwdgx-Cwqyimrlw-Dxyd Tablet] Cholecalciferol [Vitamin D3 (25 5,000 unit PO DAILY 06/19/19 06/19/19 History Mcg = 1000 Iu)] Hydrochlorothiazide [Hydrodiuril] 25 mg PO DAILY 06/19/19 06/19/19 History Losartan Potassium [Cozaar] 12.5 mg PO DAILY 06/19/19 06/19/19 History Pilocarpine [Salagen] 5 mg PO DAILY 06/19/19 06/19/19 History Propranolol HCl [Propranolol HCl 60 mg PO DAILY 06/19/19 06/19/19 History ER] Ursodiol 300 mg PO TID 06/19/19 06/19/19 History amLODIPine [Norvasc] 5 mg PO DAILY 06/19/19 06/19/19 History Allergies Allergy/AdvReac Type Severity Reaction Status Date / Time cephalexin monohydrate Allergy Rash/Hives Verified 06/19/19 14:40 [From Keflex] Penicillins Allergy Unknown Verified 06/19/19 14:40 Physical Exam Vitals: Vital Signs Temp Pulse Resp BP Pulse Ox 06/21/19 15:25 98.0 F 84 18 122/80 96 06/21/19 11:25 97.9 F 72 18 109/80 99 06/21/19 08:00 75 18 125/74 99 06/21/19 04:00 98.6 F 69 16 104/64 99 06/21/19 00:32 98.3 F 73 15 107/73 98 06/20/19 22:00 98.0 F 76 16 122/78 98 06/20/19 16:00 98.7 F 80 16 117/75 96 Intake and Output 06/21/19 06/21/19 06/21/19 06:59 14:59 22:59 Intake Total 810.959 Balance 810.959 Intake: Intake, IV Titration 210.959 Amount Heparin Sod,Pork in 0.45% 210.959 NaCl 25,000 unit In 0.45 % NaCl 1 250ml.bag @ 18 UNITS/KG/HR 19.301 mls/hr IV .[id number] [facility] Rx#: [id number] Oral 600 Other: Voiding Method Toilet Toilet # Voids 1 1 Weight 118.9 kg Constitutional: No acute distress, conversant, pleasant, obese Eyes: Anicteric sclerae, moist conjunctiva, no lid-lag Pupils equal round reactive to light ENMT: NC/AT Oropharynx clear, no erythema, or exudates Neck: Supple, FROM, no masses, or JVD No carotid bruits No thyromegaly Lungs: Clear to auscultation Clear to percussion Normal respiratory effort, no accessory muscle use Cardiovascular: Heart regular in rate and rhythm, No murmurs, gallops, or rubs No peripheral edema Abdominal: Soft Nontender, no guarding, rebound or rigidity Abdomen moving with respiration Normoactive bowel sounds No hepatomegaly, No splenomegaly No palpable mass No abdominal wall hernia noted Skin: Area of redness and swelling over the medial aspect of the upper r ight leg tender to palpation warmth to the touch no drainage or open wounds Otherwise Normal temperature, tone, texture, turgor No induration No subcutaneous nodules No rash, lesions No ulcers Extremities: As mentioned above under skin exam there is area of Area of redness and swelling over the medial aspect of the upper right leg tender to palpation warmth to the touch no drainage or open wounds No digital cyanosis No clubbing Pedal pulses intact and symmetrical Radial pulses intact and symmetrical No calf tenderness Psychiatric: Alert and oriented to person, place and time Appropriate affect fair judgment Neuro Muscles Strength 5/5 in all 4 extremities Sensation to light touch grossly present throughout Cranial nerves II-XII grossly intact No focal sensory deficits Lymphatics: no palpable cervical or supraclavicular , or inguinal lymph nodes Results - Laboratory Findings CBC and BMP: 06/21/19 05:57 06/21/19 05:57 PT/INR, D-dimer PT 10.4 sec (9.0-12.0) 06/19/19 14:44 INR 1.0 (<1.2) 06/19/19 14:44 Abnormal lab findings: Abnormal Labs 06/19/19 06/19/19 06/19/19 14:44 14:44 14:44 RBC Hgb Hct Plt Count 127 L Lymphocytes # 0.8 L APTT 41.9 H Potassium 3.3 L BUN 26 H Creatinine 1.38 H Glucose 108 H AST 44 H ALT 56 H Alkaline Phosphatase 143 H 06/19/19 06/20/19 06/20/19 21:03 03:20 03:20 RBC Hgb 10.9 L Hct Plt Count 148 L Lymphocytes # 0.9 L APTT >200.0 H* 81.2 H Potassium BUN Creatinine Glucose AST ALT Alkaline Phosphatase 06/20/19 06/20/19 06/21/19 03:20 10:23 05:57 RBC 3.59 L Hgb 10.4 L Hct 31.8 L Plt Count 136 L Lymphocytes # APTT 60.3 H Potassium 3.2 L BUN 25 H Creatinine 1.26 H Glucose 108 H AST 38 H ALT 54 H Alkaline Phosphatase 06/21/19 06/21/19 05:57 05:57 RBC Hgb Hct Plt Count Lymphocytes # APTT 50.1 H Potassium BUN 22 H Creatinine 1.27 H Glucose AST 37 H ALT Alkaline Phosphatase - Diagnostic Findings CT scan - chest: image reviewed Assessment and Plan Plan: 1 acute right lower extremity DVT with secondary pulmonary embolism. This is a recurrent event. The patient initially event in 2014 and she is presenting with another episode of DVT and pulmonary but wasn't. The patient is currently on IV heparin. 2 shortness of breath/chest pain secondary to above 3 previous history of a provoked DVT and pulmonary embolism in 2014 4 bronchial asthma 5 hypertension 6 primary biliary cirrhosis 7 chronic stage III kidney disease 8 obesity Plan Continued IV heparin. The patient will be switched to Eliquis per protocol regarding DVT and pulmonary embolism. This will likely be a long-term anticoagulation I give the patient is a recurrent history of DVTs and pulmonary embolism. The patient meanwhile we'll need an echocardiogram. It'll be useful to assess the patient's pulmonary pressures especially with her history of primary biliary cirrhosis and history of pulmonary embolism. We'll establish a baseline LV function and PA pressure. Findings were discussed with the patient at length. At evaluation will discuss. Possible discharge within the next 24 hours after this patient is been transitioned to oral anticoagulants.
[2019-06-21] MEDS: MONTELUKAST 10 MG TAB PO SCH (20:56)
[2019-06-21] MEDS: APIXABAN 5 MG TAB PO SCH (20:56)
[2019-06-21] MEDS ORDERED: PROPRANOLOL LA 60 MG CAP.SA.24H PO SCH (21:00)
[2019-06-21] MEDS ORDERED: amLODIPine 5 MG TAB PO SCH (21:00)
[2019-06-21] MEDS ORDERED: LOSARTAN 25 MG TAB PO SCH (21:00)
[2019-06-22 06:11] LABS: Basophils % (A) 1 %; Eosinophils # (A) 0.5 k/uL (0-0.7); Eosinophils % (A) 9 %; HCT 33.8 % (34.0-46.0); HGB 11.1 gm/dL (11.4-16.0); Lymphocytes # (A) 0.8 k/uL (1.0-4.8); Lymphocytes % (A) 13 %; MCH 28.9 pg (25.0-35.0); MCHC 32.8 g/dL (31.0-37.0); MCV 88.1 fL (80.0-100.0); Mean Platelet Volume 8.3; Monocytes # (A) 0.3 k/uL (0-1.0); Monocytes % (A) 5 %; Neutrophils % (A) 68 %; Platelet Count 112 k/uL (150-450); RBC 3.83 m/uL (3.80-5.40); RDW 14.7 % (11.5-15.5); WBC 5.8 k/uL (3.8-10.6)
[2019-06-22 07:11] LABS: Albumin 3.8 g/dL (3.5-5.0); Calcium 9.4 mg/dL (8.4-10.2); Potassium 3.7 mmol/L (3.5-5.1); Total Bilirubin 0.5 mg/dL (0.2-1.3); Total Protein 6.4 g/dL (6.3-8.2)
[2019-06-22 07:56] VITALS: BP 109/76; PULSE 83; RESP 16; TEMP 97.4
[2019-06-22] MEDS: SYMBICORT 160-4.5 MCG INHALER INHALATION SCH (08:18)
[2019-06-22] MEDS: URSODIOL 300 MG CAP PO SCH (08:21)
[2019-06-22] MEDS: APIXABAN 5 MG TAB PO SCH (08:21)
[2019-06-22] MEDS: HYDROCHLOROTHIAZIDE 25 MG TAB PO SCH (08:21)
[2019-06-22] MEDS: PILOCARPINE 5 MG TAB PO SCH (08:22)
--- NOTE | 2019-06-22 11:29 | ECHOF ---
Referral Reason:pulmonary embolism MEASUREMENTS -------- HEIGHT: 157.5 cm WEIGHT: 118.4 kg BP: 107/61 RVIDd: 2.6 cm (< 3.3) IVSd: 1.3 cm (0.6 - 1.1) LVIDd: 4.2 cm (3.9 - 5.3) LVPWd: 1.2 cm (0.6 - 1.1) IVSs: 1.7 cm LVIDs: 2.6 cm LVPWs: 1.8 cm LA Diam: 3.4 cm (2.7 - 3.8) LAESV Index (A-L): 27.60 ml/m Ao Diam: 3.4 cm (2.0 - 3.7) AV Cusp: 2.3 cm (1.5 - 2.6) MV EXCURSION: 20.651 mm (> 18.000) MV EF SLOPE: 96 mm/s (70 - 150) EPSS: 0.5 cm MV E Fredi: 1.24 m/s MV DecT: 269 ms MV A Fredi: 1.16 m/s MV E/A Ratio: 1.07 RAP: 5.00 mmHg RVSP: 29.09 mmHg FINDINGS -------- Sinus rhythm. This was a technically good study. The left ventricular size is normal. There is mild concentric left ventricular hypertrophy. Overa ll left ventricular systolic function is normal with, an EF between 60 - 65 %. The right ventricle is normal in size. Normal LA size by volume 22+/-6 ml/m2. The right atrium is normal in size. Interatrial and interventricular septum intact. The aortic valve is trileaflet and appears structurally normal. Moderate mitral regurgitation is present. Mild tricuspid regurgitation present. Right ventricular systolic pressure is normal at < 35 mmHg. Trace/mild (physiologic) pulmonic regurgitation. The aortic root size is normal. Normal inferior vena cava with normal inspiratory collapse consistent with estimated right atrial pre ssure of 5 mmHg. The inferior vena cava is mildly dilated. There is no pericardial effusion. CONCLUSIONS -------- 1. Sinus rhythm. 2. This was a technically good study. 3. The left ventricular size is normal. 4. There is mild concentric left ventricular hypertrophy. 5. Overall left ventricular systolic function is normal with, an EF between 60 - 65 %. 6. The right ventricle is normal in size. 7. Normal LA size by volume 22+/-6 ml/m2. 8. The right atrium is normal in size. 9. Interatrial and interventricular septum intact. 10. The aortic valve is trileaflet and appears structurally normal. 11. Moderate mitral regurgitation is present. 12. Mild tricuspid regurgitation present. 13. Right ventricular systolic pressure is normal at < 35 mmHg. 14. Trace/mild (physiologic) pulmonic regurgitation. 15. The aortic root size is normal. 16. Normal inferior vena cava with normal inspiratory collapse consistent with estimated right atrial pressure of 5 mmHg. 17. The inferior vena cava is mildly dilated. 18. There is no pericardial effusion. ENVIRONMENTAL SPECIALIST: Naomy Banks RDCS
--- NOTE | 2019-06-22 14:51 | P.DS ---
Providers Date of admission: 06/19/19 15:56 Expected date of discharge: 06/22/19 Attending physician: Karen Grant DO Consults: 06/20/19 11:19 Consult Physician Routine Consulting Provider: Stevie Melo Consult Reason/Comments: pe ,thrombocytopenia Do you want consulting provider notified?: Already Contacted 06/21/19 07:01 Consult Physician Routine Consulting Provider: Raul Cosme Consult Reason/Comments: pe ,sob Do you want consulting provider notified?: Yes Primary care physician: Rafiq Franklin - Discharge Diagnosis(es) (1) Pulmonary embolism Status: Acute Priority: High (2) Right leg DVT Status: Acute Priority: High (3) Essential hypertension Status: Acute (4) Chronic kidney disease, stage III (moderate) Status: Acute (5) Asthma Status: Acute Hospital Course: The patient is a 48-year-old obese female that presented with dyspnea and was admitted with unprovoked right lower extremity DVT and subsequent pulmonary embolism. The patient was started on IV anticoagulation with heparin drip. Right lower extremity venous ultrasound was consistent with incomplete occlusive DVT extending from the upper femoral vein into the lower popliteal vein with some additional varicose vein thrombophlebitis. CTA of the chest suggested thromboembolus the right lower lobar pulmonary artery. Hematology and pulmonary consulted and recommended use of DOAC with eliquis. As this represented a recurrence of the patient's prior history of DVT and PE and was recommended the patient continue with anticoagulation for at least 1 year with recommended follow-up Doppler and CTA before discontinuing therapy. Patient was told that there is a high probability that she would need lifelong anticoagulation. The patient was given a prescription for hypercoagulable workup, pulmonary recommended echocardiogram which showed a preserved LVEF of 60-65%. The patient was subsequently discharged home in stable condition and instructed to follow-up with her PCP and to follow up with oncology Dr. Melo in 4-5 weeks. This discharge process took approximately 35 minutes. Focused exam Respiratory: Clear auscultation bilaterally no wheezes or rhonchi, unlabored on room air Patient Condition at Discharge: Stable Plan - Discharge Summary Discharge Rx Participant: No New Discharge Prescriptions: New Apixaban [Eliquis] 10 mg PO BID #60 tab Continue Montelukast [Singulair] 10 mg PO HS Mometasone/Formoterol [Dulera 200 Mcg/5 Mcg Inhaler] 2 puff INHALATION RT- DAILY Albuterol Sulfate [Ventolin HFA] 1 - 2 puff INHALATION RT-Q6H PRN PRN Reason: Shortness Of Breath Cholecalciferol [Vitamin D3 (25 Mcg = 1000 Iu)] 5,000 unit PO DAILY amLODIPine [Norvasc] 5 mg PO DAILY Propranolol HCl [Propranolol HCl ER] 60 mg PO DAILY Losartan Potassium [Cozaar] 12.5 mg PO DAILY Hydrochlorothiazide [Hydrodiuril] 25 mg PO DAILY Ursodiol 300 mg PO TID Pilocarpine [Salagen] 5 mg PO DAILY Calcium/Magnesium/Zinc [Fqtearf-Cahvrfihl-Zrtp Tablet] 1 tab PO TID Discharge Medication List Albuterol Sulfate [Ventolin HFA] 1 - 2 puff INHALATION RT-Q6H PRN 01/06/15 [History] Mometasone/Formoterol [Dulera 200 Mcg/5 Mcg Inhaler] 2 puff INHALATION RT-DAILY 01/06/15 [History] Montelukast [Singulair] 10 mg PO HS 01/06/15 [History] Calcium/Magnesium/Zinc [Dzavmqf-Cpbzptizo-Kqrb Tablet] 1 tab PO TID 06/19/19 [History] Cholecalciferol [Vitamin D3 (25 Mcg = 1000 Iu)] 5,000 unit PO DAILY 06/19/19 [History] Hydrochlorothiazide [Hydrodiuril] 25 mg PO DAILY 06/19/19 [History] Losartan Potassium [Cozaar] 12.5 mg PO DAILY 06/19/19 [History] Pilocarpine [Salagen] 5 mg PO DAILY 06/19/19 [History] Propranolol HCl [Propranolol HCl ER] 60 mg PO DAILY 06/19/19 [History] Ursodiol 300 mg PO TID 06/19/19 [History] amLODIPine [Norvasc] 5 mg PO DAILY 06/19/19 [History] Apixaban [Eliquis] 10 mg PO BID #60 tab 06/22/19 [Rx] Follow up Appointment(s)/Referral(s): Stevie Melo MD [STAFF PHYSICIAN] - 07/26/19 2:45 pm (At [address] ) Rafiq Franklin MD [Primary Care Provider] - 06/23/19 4:00 pm (Wednesday) Peter Carvajal MD [STAFF PHYSICIAN] - 3 Weeks Patient Instructions/Handouts: Pulmonary Embolism (DC), Safe Use of Anticoagulants (DC) Activity/Diet/Wound Care/Special Instructions: Cale script filled in [facility] - $10 copay care applied lab orders in chart Pt given contact information and instructions to contact Dr. Melo's office for appt 4-5 weeks after she has her labs drawn. Rx for labs in chart. Discharge Disposition: HOME SELF-CARE
== END 2019-06-22 11:15 | disposition home or self-care (01) | DRG 299 ==
LOC: EC 13:37 → 3SCARD 15:56
PROVIDERS: ADMIT Internal Medicine; ATTEND Internal Medicine
DX: I82.411 Acute embolism and thrombosis of right femoral vein (principal); I26.99 Other pulmonary embolism without acute cor pulmonale; Z68.42 Body mass index [BMI] 45.0-49.9, adult; I82.431 Acute embolism and thrombosis of right popliteal vein; E66.9 Obesity, unspecified; K74.3 Primary biliary cirrhosis; N18.3 Chronic kidney disease, stage 3 (moderate); D69.6 Thrombocytopenia, unspecified; I73.00 Raynaud's syndrome without gangrene; I12.9 Hypertensive chronic kidney disease with stage 1 through stage 4 chronic kidney disease, or unspecified chronic kidney disease; I83.891 Varicose veins of right lower extremity with other complications; E87.6 Hypokalemia; J45.909 Unspecified asthma, uncomplicated; Z79.51 Long term (current) use of inhaled steroids; Z79.899 Other long term (current) drug therapy; Z86.718 Personal history of other venous thrombosis and embolism; Z88.1 Allergy status to other antibiotic agents; Z88.0 Allergy status to penicillin; Z87.891 Personal history of nicotine dependence; Z90.49 Acquired absence of other specified parts of digestive tract; Z90.710 Acquired absence of both cervix and uterus; Z86.711 Personal history of pulmonary embolism; Z87.19 Personal history of other diseases of the digestive system; Z87.42 Personal history of other diseases of the female genital tract; Z98.890 Other specified postprocedural states; Z83.3 Family history of diabetes mellitus; Z80.3 Family history of malignant neoplasm of breast
CPT/HCPCS: 36415; 71275; 80053; 83735; 83880; 84132; 84484; 85025; 85027; 85610; 85730; 93005; 93306; 94640; 96365; 96366; 96376; 99291

== ENCOUNTER → 2019-08-21 | Outpatient (CLI) | payer BC ==
--- NOTE | 2019-08-21 14:45 | MM ---
Reason for exam: screening (asymptomatic). Last mammogram was performed 1 year and 5 months ago. History: Family history of breast cancer in maternal grandmother at age 70. Physical Findings: A clinical breast exam by your physician is recommended on an annual basis and results should be correlated with mammographic findings. MG 3D Screening Mammo W/Cad Bilateral CC and MLO view(s) were taken. Prior study comparison: March 24, 2018, bilateral MG screening mammo w CAD. August 25, 2016, bilateral MG screening mammo w CAD. There are scattered fibroglandular densities. No significant changes when compared with prior studies. ASSESSMENT: Negative, BI-RAD 1 RECOMMENDATION: Routine screening mammogram of both breasts in 1 year.
== END | disposition home or self-care (01) ==
LOC: RADMAMWWP 07:36
PROVIDERS: ATTEND Family Medicine
DX: Z12.31 Encounter for screening mammogram for malignant neoplasm of breast (principal)
CPT/HCPCS: 77063; 77067

== ENCOUNTER → 2019-10-09 | Outpatient (CLI) | payer BC ==
--- NOTE | 2019-10-09 09:46 | US ---
EXAMINATION TYPE: US liver DATE OF EXAM: 10/09/2019 COMPARISON: NONE CLINICAL HISTORY: K74.3 Primary biliary cirrhosis. NPO, GB removed 2004 EXAM MEASUREMENTS: Liver Length: 19.3 cm CBD: 0.7 cm Right Kidney: 9.9 x 5.1 x 4.1 cm Pancreas: Tail obscured by overlying bowel gas, echogenic in appearance Liver: Enlarged in size. No focal masses or lesions seen. Gallbladder: Surgically absent Evidence for sonographic Trevino's sign: neg CBD: wnl Right Kidney: No hydronephrosis or masses seen, limited visualization of lower pole, prominent colum n of Talha, an incidental finding. IMPRESSION: Hepatomegaly. Hepatic homogeneity in echotexture throughout. No focal hepatic mass is see n. No discrete intrahepatic biliary ductal dilatation. Gallbladder is surgically absent.
== END | disposition home or self-care (01) ==
LOC: RADUSWWP 08:39
PROVIDERS: ATTEND Internal Medicine Gastroenterology
DX: R16.0 Hepatomegaly, not elsewhere classified (principal); Z90.49 Acquired absence of other specified parts of digestive tract
CPT/HCPCS: 76705

== ENCOUNTER → 2020-01-30 | Outpatient (CLI) | payer BC ==
--- NOTE | 2020-01-31 10:24 | P.ARTDOP ---
Arterial Doppler LOWER EXTREMITY ARTERIAL DOPPLER: DATE OF SERVICE: 01/30/2020 Reason for study: Right calf ulcer. Doppler waveforms: Multiphasic bilaterally throughout. Pulse volume recording: []. Pressure gradients: Only at the foot level. Ankle-brachial indices: Greater than 1 bilaterally. Toe brachial indices: 0.22 on the right, 0.24 on the left Impression: Most likely normal study. The only abnormality is low toe pressures but with adequate waveforms suspect perfusion is adequate. Pressures may be related to vasospastic phenomenon. Clinical correlation recommended.
== END | disposition home or self-care (01) ==
LOC: RADUSWWP 12:27
PROVIDERS: ATTEND Family Medicine
DX: R93.89 Abnormal findings on diagnostic imaging of other specified body structures (principal); L97.909 Non-pressure chronic ulcer of unspecified part of unspecified lower leg with unspecified severity
CPT/HCPCS: 93923

== ENCOUNTER → 2020-06-05 | Outpatient (CLI) | payer BC ==
--- NOTE | 2020-06-05 14:40 | US ---
EXAMINATION TYPE: US venous doppler duplex LE RT DATE OF EXAM: 06/05/2020 1:25 PM COMPARISON: NONE CLINICAL HISTORY: Pain. Hx of DVT on blood thinners. SIDE PERFORMED: Right TECHNIQUE: The lower extremity deep venous system is examined utilizing real time linear array sonog roderick with graded compression, doppler sonography and color-flow sonography. VESSELS IMAGED: External Iliac Vein (EIV) Common Femoral Vein Deep Femoral Vein Greater Saphenous Vein * Femoral Vein Popliteal Vein Small Saphenous Vein * Proximal Calf Veins (* superficial vessels) Right Leg: Chronic DVT noted Femoral Vein to Popliteal Vein. Thready flow is visualized. IMPRESSION: 1. Chronic deep venous thrombosis right lower extremity. This appears to have incomplete obstruction.
--- NOTE | 2020-06-05 15:10 | CT ---
CT CHEST FOR PULMONARY EMBOLISM. EXAMINATION TYPE: CT angio chest DATE OF EXAM: 06/05/2020 INDICATION: Follow up scan Prior PE. CT DLP: 559 mGycm, Automated exposure control for dose reduction was used. CONTRAST: Patient injected with 100 mL of Isovue 370. COMPARISON: 06/19/2019 TECHNIQUE: CT of the chest is performed on a spiral scan at 2 mm thick sections. Study is performed with intravenous contrast timed for evaluation for pulmonary embolism. This will limit additional po rtions of the evaluation. 3-D MIP images reconstructed by the technologist are reviewed on the compu ter in the coronal and sagittal planes. FINDINGS: No persistent filling defects are evident to suggest an acute pulmonary embolism. No mediastinal or hilar adenopathy enlarged by CT criteria is evident. The ascending aorta diameter at the level of the main pulmonary artery is 3.9 cm. The main pulmonary artery diameter at the bifur cation is 2.8 cm. Lung windows are clear. Limited CT section through the upper abdomen are unremarkable. IMPRESSIONS: 1. No acute pulmonary embolism.
== END | disposition home or self-care (01) ==
LOC: RADCTMAIN 12:32
PROVIDERS: ATTEND Internal Medicine Hematology & Oncology
DX: I82.4Z1 Acute embolism and thrombosis of unspecified deep veins of right distal lower extremity (principal); I26.99 Other pulmonary embolism without acute cor pulmonale; R76.9 Abnormal immunological finding in serum, unspecified; R06.02 Shortness of breath; I80.299 Phlebitis and thrombophlebitis of other deep vessels of unspecified lower extremity
CPT/HCPCS: 82565; 84520; 93971; 71275; Q9967

== ENCOUNTER → 2020-07-17 | Outpatient (CLI) | payer BC ==
--- NOTE | 2020-07-17 14:00 | ECHOF ---
Referral Reason:I34.0 Nonrheumatic mitral (valve) insufficiency MEASUREMENTS -------- HEIGHT: 157.5 cm WEIGHT: 117.9 kg BP: RVIDd: 2.9 cm (< 3.3) IVSd: 1.4 cm (0.6 - 1.1) LVIDd: 4.4 cm (3.9 - 5.3) LVPWd: 1.2 cm (0.6 - 1.1) EDV(Teich): 87 ml IVSs: 1.4 cm LVIDs: 3.7 cm LVPWs: 1.7 cm %IVS Thck: 3 % ESV(Teich): 60 ml EF(Teich): 31 % %FS: 15 % SV(Teich): 27 ml LA Diam: 4.4 cm (2.7 - 3.8) LALs A4C: 4.9 cm LAAs A4C: 18.4 cm LAESV A-L A4C: 59 ml LAESV MOD A4C: 57 ml LALs A2C: 5.3 cm LAAs A2C: 22.1 cm LAESV A-L A2C: 79 ml LAESV MOD A2C: 75 ml LAESV(A-L): 71 ml LAESV Index (A-L): 33.13 ml/m Ao Diam: 3.0 cm (2.0 - 3.7) AV Cusp: 2.6 cm (1.5 - 2.6) MV EXCURSION: 15.965 mm (> 18.000) MV EF SLOPE: 57 mm/s (70 - 150) EPSS: 0.2 cm MV E Fredi: 0.61 m/s MV DecT: 216 ms MV Dec Millard: 2.8 m/s MV A Fredi: 0.77 m/s MV E/A Ratio: 0.80 MV PHT: 63 ms TR Vmax: 1.27 m/s TR maxP.47 mmHg RAP: 5.00 mmHg RVSP: 11.47 mmHg FINDINGS -------- Sinus rhythm. This was a technically good study. The left ventricular size is normal. There is moderate concentric left ventricular hypertrophy. O verall left ventricular systolic function is low-normal with, an EF between 50 - 55 %. The right ventricle is normal in size. The left atrium is moderately dilated. LA is moderately dilated 34-39 ml/m2 The right atrial size is normal. The aortic valve is trileaflet, and appears structurally normal. No aortic stenosis or regurgitation. Moderate mitral regurgitation is present. Trace tricuspid regurgitation present. Right ventricular systolic pressure is normal at < 35 mmHg. Trace/mild (physiologic) pulmonic regurgitation. The aortic root size is normal. There is no pericardial effusion. CONCLUSIONS -------- 1. The left ventricular size is normal. 2. There is moderate concentric left ventricular hypertrophy. 3. Overall left ventricular systolic function is low-normal with, an EF between 50 - 55 %. 4. The right ventricle is normal in size. 5. The left atrium is moderately dilated. 6. LA is moderately dilated 34-39 ml/m2 7. The right atrial size is normal. 8. Moderate mitral regurgitation is present. 9. Trace tricuspid regurgitation present. 10. Trace/mild (physiologic) pulmonic regurgitation. SHANK STITCHER: Inés Spears RDCS
== END | disposition home or self-care (01) ==
LOC: RADECHMAIN 08:29
PROVIDERS: ATTEND Family Medicine
DX: I05.1 Rheumatic mitral insufficiency (principal); I37.1 Nonrheumatic pulmonary valve insufficiency
CPT/HCPCS: 93306

== ENCOUNTER → 2020-10-10 | Outpatient (CLI) | payer BC ==
--- NOTE | 2020-10-10 10:13 | US ---
EXAMINATION TYPE: US liver DATE OF EXAM: 10/10/2020 COMPARISON: US 10/09/2019 CLINICAL HISTORY: K74.3 Primary biliary cirrhosis. F/U previous, biliary cirrhosis, GB removed EXAM MEASUREMENTS: Liver Length: 19.3 cm CBD: 0.6 cm Right Kidney: 10.7 x 4.0 x 4.8 cm Pancreas: wnl, tail obscured by overlying bowel gas Liver: Enlarged, heterogeneous Gallbladder: Surgically absent Evidence for sonographic Trevino's sign: No CBD: wnl Right Kidney: wnl IMPRESSION: Heterogeneous echotexture within the liver is consistent with hepatocellular disease. The re is hepatomegaly.
== END | disposition home or self-care (01) ==
LOC: RADUSWWP 07:30
PROVIDERS: ATTEND Internal Medicine Gastroenterology
DX: R16.0 Hepatomegaly, not elsewhere classified (principal); K74.3 Primary biliary cirrhosis
CPT/HCPCS: 76705

== ENCOUNTER → 2020-12-26 | Outpatient (CLI) | payer BC ==
--- NOTE | 2020-12-27 14:27 | MM ---
Reason for exam: screening (asymptomatic). Last mammogram was performed 1 year and 4 months ago. History: Family history of breast cancer in maternal grandmother at age 70. Physical Findings: A clinical breast exam by your physician is recommended on an annual basis and results should be correlated with mammographic findings. MG 3D Screening Mammo W/Cad Bilateral CC and MLO view(s) were taken. Prior study comparison: August 21, 2019, bilateral MG 3d screening mammo w/cad. March 24, 2018, bilateral MG screening mammo w CAD. There are scattered fibroglandular densities. There is no discrete abnormality. No significant changes when compared with prior studies. ASSESSMENT: Negative, BI-RAD 1 RECOMMENDATION: Routine screening mammogram of both breasts in 1 year.
== END | disposition home or self-care (01) ==
LOC: RADMAMWWP 07:24
PROVIDERS: ATTEND Family Medicine
DX: Z12.31 Encounter for screening mammogram for malignant neoplasm of breast (principal)
CPT/HCPCS: 77063; 77067

== ENCOUNTER → 2021-11-10 | Outpatient (CLI) | payer BC ==
--- NOTE | 2021-11-10 09:16 | US ---
EXAMINATION TYPE: US venous doppler duplex LE RT DATE OF EXAM: 11/10/2021 9:00 AM CMPARISON: 06/05/2020 CLINICAL HISTORY: I82.890 DVT lower extremity. Hx of Chronic DVT Femoral vein-popliteal vein; patient is on Coumadin SIDE PERFORMED: Right TECHNIQUE: The lower extremity deep venous system is examined utilizing real time linear array sonog roderick with graded compression, doppler sonography and color-flow sonography. VESSELS IMAGED: Common Femoral Vein Deep Femoral Vein Greater Saphenous Vein * Femoral Vein Popliteal Vein Small Saphenous Vein * Proximal Calf Veins (* superficial vessels) Right Leg: There appears to be chronic thrombus within the mid and distal femoral vein, previously s een 06/05/2020. IMPRESSION: 1. Chronic thrombus suspected within the mid and distal femoral vein, present in May 2020.
== END | disposition home or self-care (01) ==
LOC: RADUSWWP 08:33
PROVIDERS: ATTEND Internal Medicine Hematology & Oncology
DX: I82.511 Chronic embolism and thrombosis of right femoral vein (principal); Z79.01 Long term (current) use of anticoagulants

== ENCOUNTER → 2021-11-19 | Outpatient (CLI) | payer BC ==
--- NOTE | 2021-11-19 11:36 | US ---
EXAMINATION TYPE: US liver DATE OF EXAM: 11/19/2021 COMPARISON: 10/10/2020 CLINICAL HISTORY: 51-year-old female K74.3 primary biliary cirrhosis. TECHNIQUE: Multiple sonographic images of the right upper quadrant are obtained. FINDINGS: EXAM MEASUREMENTS: Liver Length: 17.5 cm CBD: 0.6 cm, unchanged Right Kidney: 9.8 x 4.2 x 4.8 cm Pancreas: Suboptimal visualization of the pancreatic tail due to shadowing from bowel gas. Visualize d portions show no gross abnormality. Liver: Slightly coarsened hepatic echotexture. Borderline size of 17.5 cm. No focal lesion is seen. Gallbladder: surgically absent Evidence for sonographic Trevino's sign: no CBD: Borderline in caliber, unchanged. Right Kidney: No hydronephrosis. IMPRESSION: 1. Slight coarsened hepatic echotexture suggests nonspecific hepatocellular disease. Borderline hepat omegaly at 17.5 cm. 2. Borderline dilatation of the bile duct at 6 mm is unchanged and likely relates to postcholecystect darren status.
== END | disposition home or self-care (01) ==
LOC: RADUSWWP 07:38
PROVIDERS: ATTEND Internal Medicine Gastroenterology
DX: K76.89 Other specified diseases of liver (principal); K83.8 Other specified diseases of biliary tract
CPT/HCPCS: 76705

== ENCOUNTER → 2022-01-27 | Outpatient (CLI) | payer BC ==
--- NOTE | 2022-01-27 17:25 | CT ---
EXAMINATION TYPE: CT brain wo con DATE OF EXAM: 01/27/2022 COMPARISON: January 06, 2015 HISTORY: c/o sudden loss of memory CT DLP: 995.5 mGycm Automated exposure control for dose reduction was used. Ventricles have normal size. There is no mass effect or midline shift. There is mild cerebral atrophy . There is no evidence of intracranial hemorrhage. The calvarium is intact. There is fairly normal ae ration of the mastoid sinuses. IMPRESSION: Mild cerebral atrophy. No acute intracranial abnormality. No adverse change compared to old exam.
[2022-01-27 23:29] LABS: INR 3.62 (0.90-1.11); Prothrombin Time 37.5 sec (9.9-11.9)
[2022-01-28 00:45] LABS: African American GFR (CKD) 66.1 (60.0-200.0); Albumin 4.2 g/dL (3.8-4.9); Albumin/Globulin Ratio 1.35 (1.60-3.17); Anion Gap 12.6 mmol/L (10.00-18.00); BUN/Creat Ratio 17.79 Ratio (12.00-20.00); Blood Urea Nitrogen 20.1 mg/dL (9.0-27.0); Calcium 9.5 mg/dL (8.7-10.3); Carbon Dioxide 26.8 mmol/L (20.0-27.5); Globulin 3.1 g/dL (1.6-3.3); Magnesium 1.9 mg/dL (1.5-2.4); Potassium 4.1 mmol/L (3.5-5.5); T4, Free (Free Thyroxine) 1.31 ng/dL (0.800-1.800); Total Bilirubin 0.4 mg/dL (0.30-1.20); Total Protein 7.2 g/dL (6.2-8.2)
[2022-01-28 01:07] LABS: Basophils # (A) 0.05 X 10*3/uL (0.00-0.10); Basophils % (A) 0.7 %; Eosinophils # (A) 0.66 X 10*3/uL (0.04-0.35); Eosinophils % (A) 8.6 %; HCT 37.3 % (37.2-46.3); HGB 12.1 g/dL (12.0-15.0); Immature Grans, Automated 1.4 %; Lymphocytes % (A) 13.1 %; MCH 29.2 pg (27.0-32.0); MCHC 32.4 g/dL (32.0-37.0); MCV 90.1 fL (80.0-97.0); Mean Platelet Volume 11.7 fL (9.5-12.2); Monocytes # (A) 0.49 X 10*3/uL (0.20-1.00); Monocytes % (A) 6.4 %; NRBC Per 100 WBC 0 /100 WBCS (0.0-0.0); Neutrophils # (A) 5.34 X 10*3/uL (1.80-7.70); Neutrophils % (A) 69.8 %; Platelet Count 208 X 10*3/uL (140-440); RBC 4.14 X 10*6/uL (4.10-5.20); RDW 14.5 % (11.5-14.5); WBC 7.65 X 10*3/uL (4.50-10.00)
== END | disposition home or self-care (01) ==
LOC: LABWHC1 16:36
PROVIDERS: ATTEND Family Medicine
DX: I16.0 Hypertensive urgency (principal); Z79.01 Long term (current) use of anticoagulants; R00.8 Other abnormalities of heart beat; Z68.42 Body mass index [BMI] 45.0-49.9, adult
CPT/HCPCS: 36415; 70450; 80053; 83036; 83735; 84439; 84443; 85025; 85610

== ENCOUNTER → 2022-11-17 | Outpatient (CLI) | payer BC ==
--- NOTE | 2022-11-17 09:23 | US ---
EXAMINATION TYPE: US abd limited kidneys/bladder DATE OF EXAM: 11/17/2022 COMPARISON: Liver ultrasound 11/19/2021, 10/09/2019 CLINICAL HISTORY: K74.3 PRIMARY BILIARY CIRRHOSIS. GB removed. Check post void bladder. TECHNIQUE: Multiple sonographic images of the right upper quadrant, bilateral kidneys, and bladder ar e obtained. FINDINGS: EXAM MEASUREMENTS: Liver Length: 18.8 cm CBD: 0.6 cm Right Kidney: 9.8 x 4.6 x 4.0 cm Left Kidney: 10.2 x 3.4 x 3.2 cm Post Void Volume: 7.7 mL Pancreas: Echogenic in appearance. Tail obscured by bowel gas. Liver: Appears coarse. Enlarged in size. Focal lesion identified. Gallbladder: Surgically absent CBD: wnl Right Kidney: Medial anechoic lesion at hilum - 1.4 x 0.7 cm . This represents a cyst. No hydrone phrosis or calculi. Left Kidney: No hydronephrosis or masses seen, limited visualization . No shadowing calculi. Bladder: Mildly distended, anechoic Bilateral Jets not seen Normal Post Void Residual (normal less than 50ml) yes IMPRESSION: Redemonstration of slightly coarsened mildly enlarged liver suggesting nonspecific hepatocellular dis ease. No focal lesion identified.
== END | disposition home or self-care (01) ==
LOC: RADUSWWP 06:39
PROVIDERS: ATTEND Internal Medicine Gastroenterology
DX: K74.3 Primary biliary cirrhosis (principal); R16.0 Hepatomegaly, not elsewhere classified
CPT/HCPCS: 76705; 76770

== ENCOUNTER → 2022-11-17 | Outpatient (CLI) | payer BC | END | disposition home or self-care (01) | LOC: RADUSWWP 06:40 | PROVIDERS: ATTEND Internal Medicine Nephrology | DX: Z53.9 Procedure and treatment not carried out, unspecified reason (principal) ==

== ENCOUNTER → 2023-08-10 | Outpatient (CLI) | payer BC ==
--- NOTE | 2023-08-10 21:24 | US ---
EXAMINATION TYPE: US liver DATE OF EXAM: 08/10/2023 COMPARISON: US CLINICAL INDICATION: Female, 52 years old with history of PINK SHIRT; Known cirrhosis, annual follow- up/ GB surgically absent TECHNIQUE: Multiple sonographic images of the right upper quadrant are obtained. FINDINGS: EXAM MEASUREMENTS: Liver Length: 18.1 cm CBD: 0.8 cm Right Kidney: 10.5 x 4.2 x 5.1 cm Pancreas: wnl, tail obscured by overlying bowel gas Liver: Mildly enlarged. No focal lesion seen. Gallbladder: Surgically absent Evidence for sonographic Trevino's sign: No CBD: Mildly dilated. Right Kidney: wnl, lower pole gassed out IMPRESSION: 1. Mild hepatomegaly at 18.1 cm. No focal lesion seen. 2. Mildly dilated bile duct up to 8 mm probably due to chronic postcholecystectomy status. Correlate with alkaline phosphatase and bilirubin levels.
--- NOTE | 2023-08-11 09:34 | MM ---
Reason for Exam: Screening (asymptomatic). Last mammogram was performed 2 year(s) and 8 month(s) ago. Patient History: Menarche at age 13. First Full-Term at age 30. Hysterectomy at age 46. Maternal grandmother had breast cancer, age 70. Risk Values: Danae 5 year model risk: 1.2%. NCI Lifetime model risk: 10.8%. Prior Study Comparison: 03/24/2018 Bilateral Screening Mammogram, [facility]. 08/21/2019 Bilateral Screening Mammogram, [facility]. 12/26/2020 Bilateral Screening Mammogram, [facility]. Tissue Density: The breast tissue is almost entirely fat. Findings: Analyzed By CAD. There is no suspicious group of microcalcifications or new suspicious mass. Overall Assessment: Negative, BI-RAD 1 Management: Screening Mammogram of both breasts in [address] [facility] will attempt to contact patient to return for supplemental views and ultrasound if indicated. Patient should continue monthly self-breast exams. A clinical breast exam by your physician is recommended on an annual basis. This exam should not preclude additional follow-up of suspicious palpable abnormalities. Note on Danae scores and lifetime risk: 1. A Danae score greater than 3% is considered moderate risk. If this is the case, consider specialist referral to assess eligibility for a risk reducing agent. 2. If overall lifetime risk for the development of breast cancer is 20% or higher, the patient may qualify for future screening with alternating mammogram and breast MRI. Electronically signed and approved by: Raul Melgar DO
== END | disposition home or self-care (01) ==
LOC: RADMAMWWP 07:35
PROVIDERS: ATTEND Family Medicine
DX: Z12.31 Encounter for screening mammogram for malignant neoplasm of breast (principal); K74.3 Primary biliary cirrhosis; Q44.7 Other congenital malformations of liver; R16.0 Hepatomegaly, not elsewhere classified; Z80.3 Family history of malignant neoplasm of breast
CPT/HCPCS: 76705; 77063; 77067

== ENCOUNTER → 2023-08-10 | Outpatient (CLI) | payer BC | END | disposition home or self-care (01) | LOC: RADUSWWP 09:00 | PROVIDERS: ATTEND Internal Medicine Gastroenterology | DX: Z53.9 Procedure and treatment not carried out, unspecified reason (principal) ==

== ENCOUNTER → 2023-10-04 | Outpatient (CLI) | payer BC | END | disposition home or self-care (01) | LOC: LABWHC1 14:07 | PROVIDERS: ATTEND Nurse Practitioner Adult Health | DX: Z53.9 Procedure and treatment not carried out, unspecified reason (principal) ==

== ENCOUNTER → 2023-10-11 | Outpatient (CLI) | payer BC ==
[2023-10-11 15:54] LABS: INR 2.4 sec (0.93-1.11); Prothrombin Time 24.5 sec (9.9-11.9)
== END | disposition home or self-care (01) ==
LOC: LABWHC1 08:05
PROVIDERS: ATTEND Internal Medicine Gastroenterology
DX: Z79.01 Long term (current) use of anticoagulants (principal)
CPT/HCPCS: 36415; 85610

== ENCOUNTER → 2023-11-12 | Outpatient (CLI) | payer BC ==
--- NOTE | 2023-11-12 15:49 | US ---
EXAMINATION TYPE: US kidneys/renal and bladder DATE OF EXAM: 11/12/2023 COMPARISON: Ultrasound 08/10/2023 CLINICAL INDICATION: Female, 53 years old with history of N18.31 CHRONIC KIDNEY DISEASE, STAGE 3A; George dolan denies any signs or symptoms at this time EXAM MEASUREMENTS: Right Kidney: 11.0 x 5.7 x 5.0 cm Left Kidney: 10.7 x 4.2 x 4.4 cm Post Void Residual Volume: 1.7 mL Right Kidney: wnl Left Kidney: Obscured by overlying bowel gas Bladder: Not fully distended Bilateral Jets seen: Yes Normal Post Void Residual: 1.7 There is no evidence for hydronephrosis at this point in time. No nephrolithiasis is seen. No akanksha s are identified. The urinary bladder is anechoic. Bilateral ureteral jets are seen. Limited visualization of Left Kidney due to rib shadowing and bowel gas. IMPRESSION: 1. Limited evaluation of the left kidney. 2. No evidence for right obstructive uropathy.
== END | disposition home or self-care (01) ==
LOC: RADUSWWP 14:49
PROVIDERS: ATTEND Internal Medicine Nephrology
DX: N18.31 Chronic kidney disease, stage 3a (principal)
CPT/HCPCS: 76770

== ENCOUNTER → 2024-03-01 | Outpatient (CLI) | payer BC ==
--- NOTE | 2024-03-01 07:32 | US ---
EXAMINATION TYPE: US liver DATE OF EXAM: 03/01/2024 COMPARISON: 08/10/23 CLINICAL INDICATION: Female, 53 years old with history of K74.3 PRIMARY BILIARY CIRRHOSIS; TECHNIQUE: Multiple sonographic images of the right upper quadrant are obtained. FINDINGS: EXAM MEASUREMENTS: Liver Length: 17.8 cm CBD: 0.7 cm Right Kidney: 10.1 x 5.4 x 4.8 cm RESILIENT TILE INSTALLER NOTES: Pancreas: Tail obscured by overlying bowel gas Liver: Mildly enlarged Gallbladder: Surgically absent Evidence for sonographic Trevino's sign: No CBD: wnl for post surgical changes Right Kidney: wnl IMPRESSION: 1. Hepatomegaly
== END | disposition home or self-care (01) ==
LOC: RADUSWWP 07:02
PROVIDERS: ATTEND Internal Medicine Gastroenterology
DX: R16.0 Hepatomegaly, not elsewhere classified (principal); K74.3 Primary biliary cirrhosis
CPT/HCPCS: 76705

== ENCOUNTER 2024-03-27 23:25 | Emergency (ER) | payer BC ==
--- NOTE | 2024-03-27 23:35 | ED ---
General Adult HPI <John Epstein - Last Filed: 03/27/24 23:35> - General Source: patient, RN notes reviewed Mode of arrival: ambulatory Limitations: no limitations <Delisa Barbosa - Last Filed: 03/28/24 02:52> - General Stated complaint: Blood test, blood thinner high Time Seen by Provider: 03/27/24 23:32 - History of Present Illness Initial comments: 53-year-old female presented to the ED with a chief complaint of abnormal labs. Patient states she takes warfarin for a "history of clotting disease". Reports that label designer called her earlier today in urgent stated that she was supratherapeutic and was advised to present to the ED for repeat testing. (John Epstein) 53-year-old female presenting to the ER with a chief complaint of abnormal labs. Patient states she has routine blood draws to check her INR as she is on Coumadin. She takes Coumadin as she has a blood clotting disorder and gets frequent blood clots. She states today the clinical laboratory medical director told her her INR was 7.5 and she should come to the ER for evaluation. Patient states she frequently has an elevated INR and is told by her PCP to stop taking warfarin until it is therapeutic. She takes 10 mg of Coumadin daily. She does state that she took her Coumadin prior to arrival in the ER after her labs were originally drawn. Sh e denies any chest pain, shortness of breath, active bleeding, abdominal pain, fevers, chills. (Delisa Barbosa) - Related Data Home Medications Medication Instructions Recorded Confirmed Albuterol Sulfate [Ventolin HFA] 1 - 2 puff INHALATION RT-Q6H PRN 01/06/15 06/19/19 Mometasone/Formoterol [Dulera 200 2 puff INHALATION RT-DAILY 01/06/15 06/19/19 Mcg-5 Mcg Inhaler] Montelukast [Singulair] 10 mg PO HS 01/06/15 06/19/19 Calcium/Magnesium/Zinc 1 tab PO TID 06/19/19 06/19/19 [Yldakhs-Jkyfocsem-Pilo Tablet] Cholecalciferol [Vitamin D3 (25 5,000 unit PO DAILY 06/19/19 06/19/19 Mcg = 1000 Iu)] Losartan Potassium [Cozaar] 12.5 mg PO DAILY 06/19/19 06/19/19 [place] [Salagen] 5 mg PO DAILY 06/19/19 06/19/19 Propranolol HCl [Propranolol HCl 60 mg PO DAILY 06/19/19 06/19/19 ER] amLODIPine [Norvasc] 5 mg PO DAILY 06/19/19 06/19/19 hydroCHLOROthiazide [Hydrodiuril] 25 mg PO DAILY 06/19/19 06/19/19 ursodioL [Ursodiol] 300 mg PO TID 06/19/19 06/19/19 Previous Rx's Medication Instructions Recorded Apixaban [Eliquis] 10 mg PO BID #60 tab 06/22/19 Allergies Allergy/AdvReac Type Severity Reaction Status Date / Time cephalexin monohydrate Allergy Rash/Hives Verified 03/27/24 23:49 [From Keflex] Penicillins Allergy Unknown Verified 03/27/24 23:49 Review of Systems ROS Other: All systems not noted in ROS Statement are negative. <John Epstein - Last Filed: 03/27/24 23:35> ROS Other: All systems not noted in ROS Statement are negative. <Delisa Barbosa - Last Filed: 03/28/24 02:52> ROS Statement: Those systems with pertinent positive or pertinent negative responses have been documented in the HPI. Past Medical History Past Medical History: Asthma, Deep Vein Thrombosis (DVT), Hypertension, Pulmonary Embolus (PE) Additional Past Medical History / Comment(s): History of a right lower extremity DVT, history of pulmonary embolism, history of diverticulosis, probably cirrhosis, hypertension, chronic stage III kidney disease, Raynaud's disease, diverticulosis History of Any Multi-Drug Resistant Organisms: None Reported Past Surgical History: Cholecystectomy, Tonsillectomy Additional Past Surgical History / Comment(s): LIVER BIOPSY. Past Anesthesia/Blood Transfusion Reactions: No Reported Reaction Past Psychological History: No Psychological Hx Reported Past Alcohol Use History: None Reported Past Drug Use History: None Reported - Past Family History Father History Unknown: Yes Additional Family Medical History / Comment(s): No family history of thromboembolic disease Mother Family Medical History: Diabetes Mellitus Additional Family Medical History / Comment(s): Grandmother with breast cancer in her 80s, no hematological disorders <John Epstein - Last Filed: 03/27/24 23:35> General Exam <John Epstein - Last Filed: 03/27/24 23:35> General appearance: alert, in no apparent distress Eye exam: Present: normal appearance, PERRL, EOMI. Absent: scleral icterus, conjunctival injection, periorbital swelling Respiratory exam: Present: normal lung sounds bilaterally. Absent: respiratory distress, wheezes, rales, rhonchi, stridor Cardiovascular Exam: Present: regular rate, normal rhythm, normal heart sounds. Absent: systolic murmur, diastolic murmur, rubs, gallop, clicks Skin exam: Present: warm, dry, intact, normal color. Absent: rash <Delisa Barbosa - Last Filed: 03/28/24 02:52> - General Exam Comments Initial Comments: Visual Physical Exam Vital signs reviewed General: Well-appearing, nontoxic, no acute distress. Head: Normocephalic, atraumatic Eyes: PERRLA, EOMI ENT: Airway patent Chest: Nonlabored breathing Skin: No visual rash, normal skin tone Neuro: Alert and oriented 3 Musculoskeletal: No gross abnormalities (John Epstein) Course Vital Signs 03/27/24 23:46 Temperature 98.4 F Pulse Rate 78 Respiratory 20 Rate Blood Pressure 195/85 O2 Sat by Pulse 98 Oximetry Medical Decision Making <John Epstein - Last Filed: 03/27/24 23:35> - Lab Data Result diagrams: 03/27/24 23:55 03/27/24 23:55 <Delisa Barbosa - Last Filed: 03/28/24 02:52> - Medical Decision Making Quicknote portion performed. Signed John Epstein PA-C (John Epstein) Was pt. sent in by a medical professional or institution (, PA, PACKING SHED SUPERVISOR, urgent care, hospital, or [facility]...) When possible be specific @ -No Did you speak to anyone other than the patient for history (EMS, parent, family, police, friend...)? What history was obtained from this source @ -No Did you review nursing and triage notes (agree or disagree)? Why? @ -I reviewed and agree with nursing and triage notes Were old charts reviewed (outside hosp., previous admission, EMS record, old EKG, old radiological studies, urgent care reports/EKG's, [facility] records)? Report findings @ -No old charts were reviewed Differential Diagnosis (chest pain, altered mental status, abdominal pain women, abdominal pain men, vaginal bleeding, weakness, fever, dyspnea, syncope, headache, dizziness, GI bleed, back pain, seizure, CVA, palpatations, mental health, musculoskeletal)? @ -Elevated INR, subtherapeutic INR, DIC, anemia this list, to be all-inclusive EKG interpreted by me (3pts min.). @ -None X-rays interpreted by me (1pt min.). @ -None done CT interpreted by me (1pt min.). @ -None done U/S interpreted by me (1pt. min.). @ -None done What testing was considered but not performed or refused? (CT, X-rays, U/S, labs)? Why? @ -None What meds were considered but not given or refused? Why? @ -None Did you discuss the management of the patient with other professionals (professionals i.e. , PA, PACKING SHED SUPERVISOR, lab, RT, psych nurse, group social worker, alum plant supervisor, teacher, highway patrol officer, sample case porter)? Give summary @ -No Was smoking cessation discussed for >3mins.? @ -No Was critical care preformed (if so, how long)? @ -No Were there social determinants of health that impacted care today? How? (Homelessness, low income, unemployed, alcoholism, drug addiction, transportation, low edu. Level, literacy, decrease access to med. care, [facility], r ehab)? @ -No Was there de-escalation of care discussed even if they declined (Discuss DNR or withdrawal of care, Hospice)? DNR status @ -No What co-morbidities impacted this encounter? (DM, HTN, Smoking, COPD, CAD, Cancer, CVA, ARF, Chemo, Hep., AIDS, mental health diagnosis, sleep apnea, morbid obesity)? @ -Coagulation disorder Was patient admitted / discharged? Hospital course, mention meds given and route, prescriptions, significant lab abnormalities, going to OR and other pertinent info. @ -Discharge. 53-year-old female presenting to the ER with a chief complaint of elevated INR. She reports this is a frequent issue for her. History and physical exam completed. Vitals stable. Patient in no signs of acute distress and nontoxic-appearing. Patient had no acute complaints on exam. Laboratory studies obtained significant for an INR 8.2. JESUS (BUN 41, creatinine 1.32). Results discussed with patient I advised holding warfarin until told to resume by PCP. Daily INR prescription given. Had lengthy discussion with patient about return parameters and to monitor for any signs of bleeding. Advise follow-up with PCP in the next 24 to 48 hours. Medical decision making skills displayed. Patient discharged in stable condition with follow-up to PCP. Patient verbally expressed understanding and agreement with care plan. Case discussed with ED attending, Dr. Morales. Undiagnosed new problem with uncertain prognosis? @ -No Drug Therapy requiring intensive monitoring for toxicity (Heparin, Nitro, Insulin, Cardizem)? @ -No Were any procedures done? @ -No Diagnosis/symptom? @ -Elevated INR/JESUS Acute, or Chronic, or Acute on Chronic? @ -Acute Uncomplicated (without systemic symptoms) or Complicated (systemic symptoms)? @ -Uncomplicated Side effects of treatment? @ -No Exacerbation, Progression, or Severe Exacerbation? @ -No Poses a threat to life or bodily function? How? (Chest pain, USA, NV, pneumonia, PE, COPD, DKA, ARF, appy, cholecystitis, CVA, Diverticulitis, Homicidal, Suicidal, threat to staff... and all critical care pts) @ -Unlikely (Delisa Barbosa) - Lab Data Lab Results 03/27/24 03/27/24 03/27/24 Range/Units 23:55 23:55 23:55 WBC 7.3 (3.8-10.6) k/uL RBC 3.88 (3.80-5.40) m/uL Hgb 11.5 (11.4-16.0) gm/dL Hct 34.7 (34.0-46.0) % MCV 89.6 (80.0-100.0) fL MCH 29.8 (25.0-35.0) pg MCHC 33.2 (31.0-37.0) g/dL RDW 14.7 (11.5-15.5) % Plt Count 174 (150-450) k/uL MPV 8.1 Neutrophils % 65 % Lymphocytes % 13 % Monocytes % 5 % Eosinophils % 13 % Basophils % 1 % Neutrophils # 4.7 (1.3-7.7) k/uL Lymphocytes # 1.0 (1.0-4.8) k/uL Monocytes # 0.3 (0-1.0) k/uL Eosinophils # 0.9 H (0-0.7) k/uL Basophils # 0.1 (0-0.2) k/uL PT 80.9 H (10.0-12.5) sec INR 8.2 H* (<1.2) APTT 66.5 H (22.0-30.0) sec Sodium 139 (137-145) mmol/L Potassium 3.3 L (3.5-5.1) mmol/L Chloride 104 (98-107) mmol/L Carbon Dioxide 26 (22-30) mmol/L Anion Gap 9 mmol/L BUN 41 H (7-17) mg/dL Creatinine 1.32 H (0.52-1.04) mg/dL Est GFR (CKD-EPI)AfAm 54 (>60 ml/min/1.73 sqM) Est GFR (CKD-EPI)NonAf 47 (>60 ml/min/1.73 sqM) Glucose 127 H (74-99) mg/dL Calcium 9.2 (8.4-10.2) mg/dL Total Bilirubin 0.5 (0.2-1.3) mg/dL AST 29 (14-36) U/L ALT 30 (4-34) U/L Alkaline Phosphatase 97 (38-126) U/L Total Protein 6.8 (6.3-8.2) g/dL Albumin 3.8 (3.5-5.0) g/dL Disposition <John Epstein - Last Filed: 03/27/24 23:35> Is patient prescribed a controlled substance at d/c from ED?: No Time of Disposition: 02:29 <Delisa Barbosa - Last Filed: 03/28/24 02:52> Clinical Impression: Elevated INR, JESUS (acute kidney injury) Disposition: HOME SELF-CARE Condition: Stable Instructions (If sedation given, give patient instructions): Elevated INR (ED) Additional Instructions: Hold warfarin until told to resume by primary care physician. Results of daily INR's will be sent to your primary care. Follow-up with Dr. Maki in the next 24 to 48 hours. Monitor for any signs of bleeding. Return to the ER for any new or worsening concerns. Referrals: Rafiq Franklin MD [Primary Care Provider] - 1-2 days
[2024-03-28 00:10] LABS: Basophils # (A) 0.1 k/uL (0-0.2); Basophils % (A) 1 %; Eosinophils # (A) 0.9 k/uL (0-0.7); Eosinophils % (A) 13 %; HCT 34.7 % (34.0-46.0); HGB 11.5 gm/dL (11.4-16.0); Lymphocytes % (A) 13 %; MCH 29.8 pg (25.0-35.0); MCHC 33.2 g/dL (31.0-37.0); MCV 89.6 fL (80.0-100.0); Mean Platelet Volume 8.1; Monocytes # (A) 0.3 k/uL (0-1.0); Monocytes % (A) 5 %; Neutrophils # (A) 4.7 k/uL (1.3-7.7); Neutrophils % (A) 65 %; Platelet Count 174 k/uL (150-450); RBC 3.88 m/uL (3.80-5.40); RDW 14.7 % (11.5-15.5); WBC 7.3 k/uL (3.8-10.6)
[2024-03-28 00:32] LABS: ALT 30 U/L (4-34); AST 29 U/L (14-36); African American GFR (CKD) 54 (>60 ml/min/1.73 sqM); Albumin 3.8 g/dL (3.5-5.0); Alkaline Phosphatase 97 U/L (38-126); Anion Gap 9 mmol/L; Blood Urea Nitrogen 41 mg/dL (7-17); Calcium 9.2 mg/dL (8.4-10.2); Carbon Dioxide 26 mmol/L (22-30); Chloride 104 mmol/L (98-107); Glucose 127 mg/dL (74-99); Non-African American GFR(CKD) 47 (>60 ml/min/1.73 sqM); Potassium 3.3 mmol/L (3.5-5.1); Sodium 139 mmol/L (137-145); Total Bilirubin 0.5 mg/dL (0.2-1.3); Total Protein 6.8 g/dL (6.3-8.2)
[2024-03-28 00:43] VITALS: BP 195/85; PULSE 78; RESP 20; TEMP 98.4
[2024-03-28 01:00] LABS: Prothrombin Time 80.9 sec (10.0-12.5)
[2024-03-28 01:05] LABS: INR 8.2 (<1.2); Partial Thromboplastin Time 66.5 sec (22.0-30.0)
== END 2024-03-28 02:50 | disposition home or self-care (01) ==
LOC: EC 23:25
DX: R79.9 Abnormal finding of blood chemistry, unspecified (principal); N17.9 Acute kidney failure, unspecified; Z88.0 Allergy status to penicillin; Z88.1 Allergy status to other antibiotic agents
CPT/HCPCS: 36415; 80053; 85025; 85610; 85730; 99283

== ENCOUNTER → 2024-03-30 | Outpatient (CLI) | payer BC ==
[2024-03-30 14:38] LABS: INR 2.21 sec (0.93-1.11); Prothrombin Time 22.7 sec (9.9-11.9)
== END | disposition home or self-care (01) ==
LOC: LABWHC1 07:58
PROVIDERS: ATTEND Technician/Technologist
DX: Z51.81 Encounter for therapeutic drug level monitoring (principal); Z79.899 Other long term (current) drug therapy
CPT/HCPCS: 36415; 85610

== ENCOUNTER → 2024-06-22 | Outpatient (CLI) | payer BC ==
--- NOTE | 2024-06-22 13:24 | MR ---
EXAMINATION TYPE: MR brain wo con DATE OF EXAM: 06/22/2024 12:58 PM COMPARISON: NONE HISTORY: Headaches, Abnormal eye exam, hx of clotting disorder FINDINGS: The ventricles, basal cisterns and sulci overlying the cerebral convexities are mildly enlarged. There is evidence of mild periventricular white matter ischemic demyelination. Remote deep white matter insults are also noted. There are tiny foci of increased signal on diffusion-weighted imaging within the centrum semioval kami aterally bilaterally and posteriorly as well as the right frontal centrum semioval bilaterally which may reflect acute small vessel ischemic changes. There is no evidence for midline shift or mass effect. Acute intracranial hemorrhage or extra-axial collection is not evident. The paranasal sinuses and mastoid air cells are well-aerated. IMPRESSION: 1. Age-related atrophic and chronic small vessel ischemic change. 2. There are tiny foci of increased signal on diffusion-weighted imaging within the centrum semioval bilaterally bilaterally and posteriorly as well as the right frontal centrum semioval bilaterally wh ich may reflect acute small vessel ischemic changes.
== END | disposition home or self-care (01) ==
LOC: RADMRIMAIN 12:20
PROVIDERS: ATTEND Ophthalmology
DX: H47.11 Papilledema associated with increased intracranial pressure (principal); I67.82 Cerebral ischemia; Z01.00 Encounter for examination of eyes and vision without abnormal findings
CPT/HCPCS: 70551

== ENCOUNTER → 2024-10-02 | Outpatient (CLI) | payer BC ==
--- NOTE | 2024-10-02 14:38 | US ---
EXAMINATION TYPE: US arterial LE single level DATE OF EXAM: 10/02/2024 1:14 PM COMPARISONS: None. CLINICAL INDICATION: Female, 53 years old with history of M79.604 PAIN IN RIGHT LOWER LEG; Pain in ri ght toe. TECHNIQUE: Systolic pressures were taken of the upper and lower extremity arteries with ankle-brachia l indices and toe brachial indices calculated bilaterally. History of: Smoker: No Hypertension: Yes Diabetic: No Hyperlipidemia: No TIA/CVA: No Previous Vascular Surgery: No CAD: No TN: No Vascular Ulcers: Yes Claudication: No Gangrene: No FINDINGS: Doppler Waveforms: Right: Left: Pulse Volume Recording: Pressure Gradients: Brachial Artery systolic pressure: Right: XX Left: XX Posterior Tibial artery systolic pressure: Right: XX Left: XX Dorsalis Pedis artery systolic pressure: Right: XX Left: XX Toe artery systolic pressure: Right: XX Left: XX Ankle-Brachial Indices: Right: 1.31 Left: 1.08 (Vessel hardening > 1.4; Normal 0.9 - 1.4, Moderate 0.7 - 0.9, Severe 0.5-0.7) Toe Brachial Indices: Right: 0.56 Left: 0.50 (Normal > 0.6; Mild 0.35 - 0.59, Moderate 0.12 - 0.34, Severe <0.12) IMPRESSION: Normal ankle-brachial brachial indices bilaterally. [facility], , 10/02/2024 2:36 PM
== END | disposition home or self-care (01) ==
LOC: RADUSWWP 12:42
PROVIDERS: ATTEND Family Medicine
DX: M79.604 Pain in right leg (principal); M79.674 Pain in right toe(s)
CPT/HCPCS: 93922

== ENCOUNTER → 2024-10-27 | Outpatient (CLI) | payer BC ==
[2024-10-27 18:20] LABS: HCT 31.7 % (37.2-46.3); HGB 10.2 g/dL (12.0-15.0); MCH 29.3 pg (27.0-32.0); MCHC 32.2 g/dL (32.0-37.0); MCV 91.1 FL (80.0-97.0); Mean Platelet Volume 10.4 FL (9.5-12.2); NRBC Per 100 WBC 0 X 10*3/uL (0.00-0.01); Platelet Count 119 X 10*3/uL (140-440); RBC 3.48 X 10*6/uL (4.10-5.20); RDW 16.2 % (11.5-14.5); WBC 15.86 X 10*3/uL (4.50-10.00)
[2024-10-27 19:16] LABS: NT-Pro-B-Type Natriuretic Pept 2399 pg/mL (0-125)
[2024-10-27 20:02] LABS: Basophils # (M) 0.16 X 10*3/uL (0.00-0.10); Eosinophils # (M) 0 X 10*3/uL (0.04-0.35); Lymphocytes # (M) 0.48 X 10*3/uL (0.90-5.00); Monocytes # (M) 0.32 X 10*3/uL (0.20-1.00); Neutrophils % (M) 87 %
[2024-10-27 20:33] LABS: ALT 17 U/L (8-44); AST 17 U/L (13-35); Albumin 3.5 g/dL (3.8-4.9); Albumin/Globulin Ratio 1.52 Ratio (1.60-3.17); Alkaline Phosphatase 62 U/L (41-126); BUN/Creat Ratio 25.05 Ratio (12.00-20.00); Blood Urea Nitrogen 52.6 mg/dL (9.0-27.0); Calcium 9.1 mg/dL (8.7-10.3); Carbon Dioxide 15.6 mmol/L (21.6-31.8); Chloride 112 mmol/L (96-109); Globulin 2.3 g/dL (1.6-3.3); Glucose 110 mg/dL (70-110); Magnesium 1.6 mg/dL (1.5-2.4); Potassium 4.4 mmol/L (3.5-5.5); Sodium 142 mmol/L (135-145); Total Bilirubin 0.4 mg/dL (0.3-1.2); Total Protein 5.8 g/dL (6.2-8.2)
== END | disposition home or self-care (01) ==
LOC: LABWHC1 11:15
PROVIDERS: ATTEND Nurse Practitioner Adult Health
DX: Z13.1 Encounter for screening for diabetes mellitus (principal); I10 Essential (primary) hypertension; N18.32 Chronic kidney disease, stage 3b; Z79.01 Long term (current) use of anticoagulants; I21.9 Acute myocardial infarction, unspecified; N17.9 Acute kidney failure, unspecified
CPT/HCPCS: 36415; 80053; 82728; 83036; 83735; 83880; 84443; 85025

== ENCOUNTER 2025-04-26 09:50 | Day surgery (SDC) | payer BC ==
[~2025-04-26 09:50] MED LIST: ALPRAZolam 0.25 MG TAB PO PRN; NITROGLYCERIN SL TABS 0.4 MG TAB SUBLINGUAL PRN
[2025-04-26] MEDS: IV FLUID CONTINUATION 1,000 ML IV ONE (10:12)
[2025-04-26] MEDS: ATORVASTATIN 80 MG TAB PO STA (10:26)
[2025-04-26] MEDS: ASPIRIN 325 MG TAB PO STA (10:26)
[2025-04-26] MEDS: IV FLUID CONTINUATION 950 ML IV ONE (11:45)
[2025-04-26] MEDS: LIDOCAINE 1% INJ 10MG/ML (20 ML MDV) SQ ONE (11:53)
[2025-04-26] MEDS: MIDAZOLAM 2 MG/2 ML VIAL IVP ONE (11:57)
[2025-04-26] MEDS: HEPARIN SODIUM,PORCINE 10,000 UNIT in SODIUM CHLORIDE 0.9% 1,000 ML IRRIGATION PRN (12:10)
[2025-04-26] MEDS: HEPARIN SODIUM,PORCINE (1 ML) 2,500 UNIT in SODIUM CHLORIDE 0.9% 250 ML IRRIGATION PRN (12:10)
[2025-04-26] MEDS: HEPARIN SODIUM 1,000 UN/ML (10ML VL) IV ONE (12:37)
[2025-04-26] MEDS: CLOPIDOGREL 75 MG TAB PO ONE (12:39)
[2025-04-26] MEDS: HEPARIN SODIUM 1,000 UN/ML (10ML VL) IVP ONE ×2 (12:43→12:57)
[2025-04-26 12:45] LABS: O2 Sat Blood Gas 63.7 %
[2025-04-26] MEDS: IOPAMIDOL-370 100ML BTL INJ ONE (12:45)
[2025-04-26 12:46] LABS: O2 Sat Blood Gas 97.9 %
[2025-04-26 12:47] LABS: O2 Sat Blood Gas 74.8 %
[2025-04-26] MEDS: NITROGLYCERIN 1000MCG/10ML SYRINGE INTRACORON ONE (13:01)
[2025-04-26] MEDS: IOPAMIDOL-370 100ML BTL INTRATHECA ONE (13:02)
[2025-04-26] MEDS ORDERED: GABAPENTIN 300 MG CAP PO PRN (13:19)
[2025-04-26] MEDS ORDERED: ALBUTEROL NEBULIZED 2.5 MG/3 ML INHALATION PRN (13:19)
[2025-04-26] MEDS ORDERED: NON FORMULARY DRUG (Albuterol Inhaler 90 MCG Puff) INHALATION PRN (13:19)
[2025-04-26] MEDS ORDERED: SENNOSIDES-DOCUSATE SODIUM 1 EACH TAB PO PRN (13:19)
[2025-04-26] MEDS: SODIUM CHLORIDE 0.9% 1,000 ML IV SCH (13:35)
--- NOTE | 2025-04-26 13:40 | P.CARDCATH ---
Date of Procedure: 04/26/25 Description of Procedure: History: Patient was referred for cardiac catheterization to evaluate for CAD and also to assess hemodynamics. Patient has moderate to severe mitral regurgitation with probably some perforation of the P1 segment of posterior mitral leaflet. She has exertional shortness of breath with some improvement lately. She was referred to [facility] cardiac surgery team was advised to have a right and left heart catheterization and therefore she is brought in for the procedure after due discussion regarding rationale risks benefits and options.. She has multiple comorbid conditions including hypercoagulable state with antiphospholipid antibody, multiple DVT with unprovoked pulmonary embolism currently on enoxaparin 120 mg subcu every 24 hours. She also has some open wounds with chronic venous stasis on her lower extremities under the care of vascular surgery and wound center. Procedure: #1 right heart catheterization with hemodynamic assessment and thermodilution cardiac output. #2 left heart catheterization and coronary angiography. #3 PTCA and stenting of distal dominant right coronary artery with a drug-eluting stent #4 intravascular ultrasound of right coronary artery adjunctive procedure before and after PCI Performed by Dr. Kimmy Calix Moderate conscious sedation time was 84 minutes. Patient was administered Versed oxygen saturation hemodynamic and EKG were monitored closely Procedure Details: I attempted right radial access but the vessel was extremely small on ultrasound then I abandoned and went from a right femoral approach. Under strict aseptic precautions and local anesthesia, using micropuncture needle technique I gained access into the right femoral vein and right femoral artery and placed a 6 Bur[place]ian introducers. The risks, benefits, complications, treatment options, and expected outcomes were discussed with the patient. The patient and/or family concurred with the proposed plan, giving informed consent. Patient was brought to the wood preserving plant laborer after IV hydration was begun and oral premedication was given. Patient was further sedated with midazolam. Patient was prepped and draped in the usual manner. Under strict aseptic precautions and local anesthesia a 6 [place] introducer was placed in the right femoral artery. Using a 6 [place]ian balloontipped catheter I performed right heart catheterization, checked all the pressures and perform thermodilution cardiac output. I checked all the saturations. Using a JL 4.0 and a JR 4/0 catheters I performed coronary angiography and the same JR catheter was used to check LV pressures and LV gram was not performed. After the procedure was completed the sheaths and catheters were all removed. Hemostasis was achieved with Angio-Seal device for the arterial sheath and manual compression for the venous sheath. Findings: Hemodynamics: The right atrial pressure was 5 mmHg, right ventricular pressure was 30/5, pulmonary arterial pressure was 30/14 with a mean of 22 and pulmonary capillary wedge pressure was 12 mmHg. Right atrial saturation was 64% femoral saturation 97% and pulmonary arterial saturation 74%. Thermodilution cardiac output was 7.4 L and Ramiro cardiac output was 5.9 L. Left Main: Long vessel no significant disease bifurcates into LAD and circumflex LAD: Fair caliber vessel extends along the anterior wall gives off a diagonal branch in the midportion minor irregularities runs all the way to the apex and no significant disease CIRC: Nondominant vessel gives a high first obtuse marginal minor irregularities then runs in the AV groove gives off a second obtuse minor minor irregularities no significant disease RCA: Very dominant vessel distally before it bifurcates into PDA and PLV has a eccentric 90 to 95% narrowing at the origin of a small secondary branch. This appears to be a very significant lesion hemodynamically. Distal branches specifically the continuation which is the PLV branch and a small PDA have minor irregularities LV: LV gram not performed Closure Device: Angio-Seal for right femoral artery and manual compression for right femoral vein Complications: None Estimated Blood Loss: Minimal Impression: Normal filling pressures no gradient right dominant system 90% distal RCA disease. No significant disease in left main circumflex or RCA Pre Procedure Diagnosis: Moderate to severe mitral regurgitation, probable CAD Final Post Procedure Diagnosis: Single-vessel CAD RCA disease Recommendation: PCI of RCA was advised and performed expeditiously. PCI procedure details: I used a standard right Maikel guide catheter and a run- through wire. Wire was Distally. A 2.5 caliber 20 mm NC trek balloon was used to predilate the lesion. I then performed intravascular ultrasound and noted that the reference diameter was about 3.5 to 3.7 mm. I deployed a 23 mm long 3.5 caliber Xience stent. I then performed intravascular ultrasound and noted that the stent was fully expanded and well opposed but the reference diameter was slightly larger. I therefore went back with a 4.0 caliber NC trek balloon and postdilated the stent with excellent angiographic result. Final angiographic and ultra sound result was excellent. Patient received 600 mg of Plavix. She will be on Plavix and enoxaparin combination for at least 1 year. For 3 weeks she will be on aspirin 81 mg also. A total of 9000 units of heparin was given and ACT was 236. She was then sent to the esu. Details were discussed with the patient's [id number] the family member that was available. Complications: None; patient tolerated the procedure well. Disposition: ESU- hemodynamically stable. Condition: Stable Discharge Disposition: Discharge patient home in a.m. if stable.
[2025-04-26] MEDS: FUROSEMIDE 40 MG TAB PO SCH (20:07)
[2025-04-26] MEDS: ursodioL 300 MG CAP PO SCH (20:07)
[2025-04-26] MEDS: ENOXAPARIN 100 MG/ML SYRINGE SQ SCH (20:07)
[2025-04-26] MEDS: METOPROLOL SUCCINATE (ER) 50 MG TAB.ER.24H PO SCH (20:07)
[2025-04-26] MEDS: MONTELUKAST 10 MG TAB PO SCH (20:07)
[2025-04-26] MEDS: HYDROcodone/APAP 7.5-325MG 1 EACH TAB PO PRN (20:11)
[2025-04-26 21:29] LABS: Basophils # (A) 0.05 10*3/uL (0.00-0.10); Basophils % (A) 0.5 %; Eosinophils # (A) 0.47 10*3/uL (0.04-0.35); Eosinophils % (A) 4.8 %; HCT 33.6 % (37.2-46.3); HGB 10.9 g/dL (12.0-15.0); Lymphocytes # (A) 0.68 10*3/uL (0.90-5.00); Lymphocytes % (A) 6.9 %; MCH 29.4 pg (27.0-32.0); MCHC 32.4 g/dL (32.0-37.0); MCV 90.6 fL (80.0-97.0); Mean Platelet Volume 9.3 fL (9.5-12.2); Monocytes # (A) 0.53 10*3/uL (0.20-1.00); Monocytes % (A) 5.4 %; Neutrophils # (A) 7.88 10*3/uL (1.80-7.70); Neutrophils % (A) 80.4 %; Platelet Count 200 10*3/uL (140-440); RBC 3.71 10*6/uL (4.10-5.20); RDW 13.9 % (11.5-14.5); WBC 9.81 10*3/uL (4.50-10.00)
[2025-04-26 21:39] LABS: ALT 24 U/L (4-34); AST 28 U/L (14-36); African American GFR (CKD) 40 (>60 ml/min/1.73 sqM); Albumin 3.4 g/dL (3.5-5.0); Alkaline Phosphatase 139 U/L (38-126); Anion Gap 8 mmol/L; Blood Urea Nitrogen 41 mg/dL (7-17); Calcium 8.9 mg/dL (8.4-10.2); Carbon Dioxide 22 mmol/L (22-30); Chloride 107 mmol/L (98-107); Glucose 113 mg/dL (74-99); Non-African American GFR(CKD) 35 (>60 ml/min/1.73 sqM); Potassium 4.2 mmol/L (3.5-5.1); Sodium 137 mmol/L (137-145); Total Bilirubin 0.5 mg/dL (0.2-1.3); Total Protein 6.2 g/dL (6.3-8.2)
[2025-04-27] MEDS: ALPRAZolam 0.5 MG TAB PO PRN (00:15)
[2025-04-27 06:47] LABS: Basophils # (A) 0.05 10*3/uL (0.00-0.10); Basophils % (A) 0.7 %; Eosinophils # (A) 0.34 10*3/uL (0.04-0.35); Eosinophils % (A) 4.6 %; HCT 30.1 % (37.2-46.3); Lymphocytes # (A) 0.58 10*3/uL (0.90-5.00); Lymphocytes % (A) 7.9 %; MCHC 33.2 g/dL (32.0-37.0); MCV 90.4 fL (80.0-97.0); Mean Platelet Volume 9.6 fL (9.5-12.2); Monocytes # (A) 0.56 10*3/uL (0.20-1.00); Monocytes % (A) 7.6 %; Neutrophils % (A) 76.3 %; Platelet Count 162 10*3/uL (140-440); RBC 3.33 10*6/uL (4.10-5.20); RDW 13.9 % (11.5-14.5); WBC 7.34 10*3/uL (4.50-10.00)
[2025-04-27 08:12] VITALS: BP 117/74; PULSE 84; RESP 17; TEMP 97.6
[2025-04-27 08:31] LABS: African American GFR (CKD) 40 (>60 ml/min/1.73 sqM); Anion Gap 8 mmol/L; Blood Urea Nitrogen 35 mg/dL (7-17); Calcium 9.1 mg/dL (8.4-10.2); Carbon Dioxide 26 mmol/L (22-30); Chloride 104 mmol/L (98-107); Glucose 98 mg/dL (74-99); Non-African American GFR(CKD) 35 (>60 ml/min/1.73 sqM); Potassium 3.5 mmol/L (3.5-5.1); Sodium 138 mmol/L (137-145)
[2025-04-27] MEDS: ATORVASTATIN 80 MG TAB PO SCH (08:57)
[2025-04-27] MEDS: POTASSIUM CHLORIDE ER 20 MEQ TAB.ER PO SCH (08:57)
[2025-04-27] MEDS: MAGNESIUM OXIDE 400 MG TAB PO SCH (08:57)
[2025-04-27] MEDS: CHOLECALCIFEROL 125 MCG (5000 IU) TABLET PO SCH (08:57)
[2025-04-27] MEDS: CLOPIDOGREL 75 MG TAB PO SCH (08:58)
[2025-04-27] MEDS: ASPIRIN 81 MG PO SCH (08:58)
--- NOTE | 2025-04-27 11:02 | P.DS ---
Providers Attending physician: William Calix Primary care physician: [facility] Course: This is a 54-year-old female who underwent cardiac catheterization yesterday with Dr. Calix. Patient underwent stenting of the RCA. Patient is doing well post procedure with no immediate complications. She denies chest pain or shortness of breath. The patient was deemed stable for discharge home today from a cardiac standpoint. Patient is to resume her current dose of Lovenox. Ad ditionally patient is to continue on dual antiplatelet therapy with aspirin and Plavix. After 3 weeks, aspirin will be discontinued. Also, lipitor was increased to 80mg daily. LDL goal less than 70. Please see EMR for further hospital course details. Discharge diagnosis CAD, status post stenting of the RCA History of antiphospholipid antibody with DVT and PE on Lovenox outpatient Moderate to severe mitral regurgitation Nurse practitioner note has been reviewed by physician. Signing provider agrees with the documented findings, assessment, and plan of care documented by METAL SPONGE MAKING MACHINE OPERATOR as a scribe. Plan - Discharge Summary Discharge Rx Participant: No New Discharge Prescriptions: New Atorvastatin [Lipitor] 80 mg PO HS #90 tab Clopidogrel [Plavix] 75 mg PO DAILY #90 tablet No Action Montelukast [Singulair] 10 mg PO HS Albuterol Sulfate [Ventolin HFA] 1 - 2 puff INHALATION RT-Q6H PRN PRN Reason: Shortness Of Breath Cholecalciferol [Vitamin D3 (25 Mcg = 1000 Iu)] 5,000 unit PO DAILY ursodioL [Ursodiol] 600 mg PO BID Albuterol Inhaler [Ventolin Hfa Inhaler] 1 - 2 puff INHALATION Q6H PRN PRN Reason: Wheezing Potassium Chloride ER [K-Dur 20] 20 meq PO DAILY Furosemide [Lasix] 40 mg PO BID Metoprolol Succinate (ER) [Toprol Xl] 50 mg PO HS Enoxaparin Sodium 120 mg SQ DAILY Aspirin [Adult Low Dose Aspirin EC] 81 mg PO DAILY Magnesium Oxide [Mag-Ox] 400 mg PO DAILY Gabapentin [Neurontin] 300 mg PO QID PRN PRN Reason: Pain Ubrogepant [Ubrelvy] 100 mg PO DAILY PRN PRN Reason: migraines Sennosides/Docusate Sodium [Senna Plus 8.6-50 mg Tablet] 1 each PO DAILY PRN PRN Reason: Constipation HYDROcodone/APAP 7.5-325MG [[place]amo 7.5-325] 1 tab PO TID PRN PRN Reason: Pain Discharge Medication List Albuterol Sulfate [Ventolin HFA] 1 - 2 puff INHALATION RT-Q6H PRN 01/06/15 [History] Montelukast [Singulair] 10 mg PO HS 01/06/15 [History] Cholecalciferol [Vitamin D3 (25 Mcg = 1000 Iu)] 5,000 unit PO DAILY 06/19/19 [History] ursodioL [Ursodiol] 600 mg PO BID 06/19/19 [History] Albuterol Inhaler [Ventolin Hfa Inhaler] 1 - 2 puff INHALATION Q6H PRN 04/24/25 [History] Aspirin [Adult Low Dose Aspirin EC] 81 mg PO DAILY 04/24/25 [History] Enoxaparin Sodium 120 mg SQ DAILY 04/24/25 [History] Furosemide [Lasix] 40 mg PO BID 04/24/25 [History] Gabapentin [Neurontin] 300 mg PO QID PRN 04/24/25 [History] HYDROcodone/APAP 7.5-325MG [[place]amo 7.5-325] 1 tab PO TID PRN 04/24/25 [History] Magnesium Oxide [Mag-Ox] 400 mg PO DAILY 04/24/25 [History] Metoprolol Succinate (ER) [Toprol Xl] 50 mg PO HS 04/24/25 [History] Potassium Chloride ER [K-Dur 20] 20 meq PO DAILY 04/24/25 [History] Sennosides/Docusate Sodium [Senna Plus 8.6-50 mg Tablet] 1 each PO DAILY PRN 04/24/25 [History] Ubrogepant [Ubrelvy] 100 mg PO DAILY PRN 04/24/25 [History] Atorvastatin [Lipitor] 80 mg PO HS #90 tab 04/27/25 [Rx] Clopidogrel [Plavix] 75 mg PO DAILY #90 tablet 04/27/25 [Rx] Follow up Appointment(s)/Referral(s): William Calix MD [STAFF PHYSICIAN] - 1 Week (OFFICE WILL CALL PATIENT WITH A FOLLOW UP APPOINTMENT DATE/TIME. )
[2025-04-27] MEDS: ENOXAPARIN 60 MG/0.6 ML SYRINGE SQ ONE (11:41)
== END 2025-04-27 12:11 | disposition home or self-care (01) ==
LOC: CATHCVL 09:50 → 3SCARD 13:10 → CATHCVL 04-27 12:11
PROVIDERS: ATTEND Internal Medicine Interventional Cardiology
DX: I25.10 Atherosclerotic heart disease of native coronary artery without angina pectoris (principal); I34.0 Nonrheumatic mitral (valve) insufficiency; Z95.5 Presence of coronary angioplasty implant and graft; Z86.711 Personal history of pulmonary embolism; Z86.718 Personal history of other venous thrombosis and embolism; Z79.02 Long term (current) use of antithrombotics/antiplatelets; Z79.899 Other long term (current) drug therapy; Z79.82 Long term (current) use of aspirin
CPT/HCPCS: 92978; 93460; 80053; 80048; 85018; 82810; 85025 ×2; C9600; C1760; C1769 ×4; C1887; C1894 ×2; C1751; C1753; C1874; C1725 ×2; J2250; J1644 ×3; J2003; J1650 ×2; Q9967; J2305

== ENCOUNTER → 2025-05-22 | Outpatient (CLI) | payer BC ==
--- NOTE | 2025-05-23 09:47 | MM ---
Reason for Exam: Screening (asymptomatic). Last mammogram was performed 1 year(s) and 9 month(s) ago. Patient History: Menarche at age 13. First Full-Term at age 30. Hysterectomy at age 46. Maternal grandmother had breast cancer, age 70. Risk Values: Danae 5 year model risk: 1.3%. NCI Lifetime model risk: 10.5%. Prior Study Comparison: 08/21/2019 Bilateral Screening Mammogram, [facility]. 12/26/2020 Bilateral Screening Mammogram, [facility]. 08/10/2023 Bilateral MG 3D screening mammo w/cad, [facility]. Tissue Density: The breasts are almost entirely fatty. Findings: Analyzed By CAD. Right breast: There is no suspicious group of microcalcifications or new suspicious mass. Left breast: There is no suspicious group of microcalcifications or new suspicious mass. Overall Assessment: Negative, BI-RAD 1 Management: Screening Mammogram of both breasts in [address] [facility] will attempt to contact patient to return for supplemental views and ultrasound if indicated. Patient should continue monthly self-breast exams. A clinical breast exam by your physician is recommended on an annual basis. This exam should not preclude additional follow-up of suspicious palpable abnormalities. Note on Danae scores and lifetime risk: 1. A Danae score greater than 3% is considered moderate risk. If this is the case, consider specialist referral to assess eligibility for a risk reducing agent. 2. If overall lifetime risk for the development of breast cancer is 20% or higher, the patient may qualify for future screening with alternating mammogram and breast MRI. [facility], , 05/22/2025 9:21 AM. Electronically signed and approved by: Raul Melgar DO
== END | disposition home or self-care (01) ==
LOC: RADMAMWWP 08:33
PROVIDERS: ATTEND Family Medicine
DX: Z12.31 Encounter for screening mammogram for malignant neoplasm of breast (principal); R92.313 Mammographic fatty tissue density, bilateral breasts; Z80.3 Family history of malignant neoplasm of breast
CPT/HCPCS: 77063; 77067